=== PATIENT | male | born 1955 | race African-American/Black ===

== ENCOUNTER 2021-08-16 09:36 | Inpatient (IN) | payer OTHER ==
[~2021-08-16] VITALS: Ht 175.3 cm; Wt 86.2 kg
[2021-08-16] VITALS (12 sets, daily range): BP systolic 165–195; BP diastolic 69–125
[2021-08-16 10:57] LABS: BASOPHILS % 1.2 % (0.0-2.0); EOSINOPHILS % 0.9 % (0.0-5.0); HEMATOCRIT. 42.9 % (42.0-52.0); HEMOGLOBIN. 14.6 g/dL (14.0-18.0); LYMPHOCYTES % 35.1 % (20.0-50.0); MEAN CORPUSCULAR HEMOGLOBIN 29.3 pg (28.0-32.0); MEAN CORPUSCULAR VOLUME 85.7 fL (80.0-94.0); MEAN PLATELET VOLUME 9.2 fl (7.4-10.4); MONOCYTES % 6.6 % (2.0-8.0); NEUTROPHILS % 56.2 % (40.0-76.0); PLATELET 232 x1000/uL (130-400); RED CELL DISTRIBUTION WIDTH 14.2 % (11.6-14.6)
[2021-08-16 11:02] LABS: CHLORIDE 108 mEq/L (98-107)
[2021-08-16] MEDS ORDERED: FUROSEMIDE 40MG/4ML VIAL IVP SCH (12:45)
[2021-08-16] MEDS ORDERED: DOPAMINE 400MG/250ML PREMIX 250 ML IV PRN (13:00)
[2021-08-16] MEDS: ASPIRIN 81MG TABLET PO SCH (13:09)
[2021-08-16] MEDS: FUROSEMIDE 40MG/4ML VIAL IVP SCH (13:12)
[2021-08-16] MEDS ORDERED: DOPAMINE HCL 400 MG in DEXT 5% WATER 250 ML IV PRN (13:15)
[2021-08-16 16:17] LABS: *AMPHETAMINES SCREEN URINE NEGATIVE (NEGATIVE); *BENZODIAZEPINES SCREEN URINE NEGATIVE (NEGATIVE); CANNABINOID URINE SCREEN PRESUMTIVE POSITIVE (NEGATIVE); OPIATES URINE SCREEN NEGATIVE (NEGATIVE); PHENCYCLIDINE URINE SCREEN NEGATIVE (NEGATIVE)
[2021-08-16 16:18] LABS: *COCAINE SCREEN URINE NEGATIVE (NEGATIVE); METHADONE URINE SCREEN NEGATIVE (NEGATIVE)
[2021-08-16] MEDS ORDERED: IPRATROPIUM/ALBUTEROL 0.5-3(2.5)MG/3ML NEB HHN PRN (16:30)
[2021-08-16] MEDS ORDERED: ACETAMINOPHEN 325MG TABLET PO PRN (16:30)
[2021-08-16] MEDS ORDERED: DOCUSATE SODIUM 100MG CAPSULE PO PRN (16:30)
[2021-08-16] MEDS ORDERED: LORAZEPAM 0.5MG TABLET PO PRN (16:30)
[2021-08-16] MEDS ORDERED: ONDANSETRON HCL 4MG/2ML INJ IV PRN (16:30)
[2021-08-16] MEDS ORDERED: NALOXONE HCL 0.4MG/ML VIAL IV PRN (16:45)
[2021-08-16] MEDS ORDERED: CALC215T4 PO (21:23)
[2021-08-16] MEDS ORDERED: FISH1CAP34 MT (21:31)
[2021-08-16] MEDS ORDERED: GLIP10TA10 PO (21:31)
[2021-08-16] MEDS ORDERED: PRAS10TA9 PO (21:31)
[2021-08-16] MEDS ORDERED: CALC-26 PO (21:31)
[2021-08-16] MEDS ORDERED: METF-414 PO (21:31)
[2021-08-16] MEDS ORDERED: ALBU4TAB6 PO (21:31)
[2021-08-16] MEDS ORDERED: ASPI-1406 PO (21:31)
[2021-08-16] MEDS ORDERED: ATOR40TA70 MT (21:31)
[2021-08-16] MEDS ORDERED: FERR325T30 PO (21:31)
[2021-08-16] MEDS ORDERED: MULT-13 MT (21:31)
[2021-08-16] MEDS ORDERED: LISI-186 MT (21:31)
[2021-08-16] MEDS ORDERED: FLUT16SP15 BOTHNSTRLS (21:34)
[2021-08-16] MEDS ORDERED: ALBU90AE INH (21:34)
[2021-08-16] MEDS ORDERED: *PATIENT'S OWN MEDICATION STORAGE XX SCH (23:15)
[2021-08-17] VITALS (72 sets, daily range): BP systolic 92–222; BP diastolic 48–144
[2021-08-17 05:55] LABS: BASOPHILS % 1.4 % (0.0-2.0); EOSINOPHILS % 1.2 % (0.0-5.0); HEMATOCRIT. 43.2 % (42.0-52.0); HEMOGLOBIN. 14.4 g/dL (14.0-18.0); LYMPHOCYTES % 27.3 % (20.0-50.0); MEAN CORPUSCULAR HEMOGLOBIN 28.4 pg (28.0-32.0); MEAN CORPUSCULAR VOLUME 84.8 fL (80.0-94.0); MEAN PLATELET VOLUME 9.2 fl (7.4-10.4); MONOCYTES % 9.2 % (2.0-8.0); NEUTROPHILS % 60.9 % (40.0-76.0); PLATELET 251 x1000/uL (130-400); RED BLOOD CELL COUNT 5.09 mill/uL (4.7-6.1)
[2021-08-17 06:55] LABS: CHLORIDE 108 mEq/L (98-107)
[2021-08-17] MEDS ORDERED: NICARDIPINE 100MCG/ML 10ML VIAL (CATH LAB) IV ONE ×2 (07:44)
[2021-08-17] MEDS ORDERED: HEPARIN SODIUM 1,000 UNIT/1ML VIAL IV ONE (07:44)
[2021-08-17] MEDS: FUROSEMIDE 40MG/4ML VIAL IVP SCH (08:56)
[2021-08-17] MEDS: ASPIRIN 81MG TABLET PO SCH (09:00)
[2021-08-17] MEDS ORDERED: DEXTROSE 50% WATER 50ML SYRINGE IV PRN (09:45)
[2021-08-17] MEDS: BLOOD SUGAR DIAGNOSTIC STRIP TEST SCH ×3 (13:06→21:00)
[2021-08-17] MEDS: INSULIN LISPRO 100 UNITS/ML SUBCUT SCH ×3 (13:06→21:00)
[2021-08-17] MEDS ORDERED: LIDOCAINE HCL 1% 30ML VIAL (10MG/ML) ONE (13:28)
[2021-08-17] MEDS ORDERED: IODIXANOL 320MG/ML 100 ML BOTTLE IV ONE ×2 (13:28→14:53)
[2021-08-17] MEDS ORDERED: ASPIRIN/SOD BICARB/CITRIC ACID 324MG TAB EFF ONE (13:28)
[2021-08-17] MEDS ORDERED: MIDAZOLAM HCL 2 MG/2 ML VIAL ONE (13:32)
[2021-08-17] MEDS ORDERED: FENTANYL CITRATE/PF 50MCG/ML 2ML VIAL ONE (13:33)
[2021-08-17] MEDS ORDERED: HYDRALAZINE 20MG/ML VIAL ONE ×2 (13:45→15:41)
[2021-08-17] MEDS ORDERED: NITROGLYCERIN 0.4MG TABLET SL SL ONE (13:46)
[2021-08-17] MEDS ORDERED: IOHEXOL-300 100 ML BOTTLE ONE (14:25)
[2021-08-17] MEDS ORDERED: CLOPIDOGREL 75MG TABLET ONE (14:26)
[2021-08-17] MEDS ORDERED: SODIUM CHLORIDE 0.45% 1,000 ML IV ONE (15:30)
[2021-08-17] MEDS ORDERED: ACETAMINOPHEN 325MG TABLET PO PRN (15:30)
[2021-08-17] MEDS ORDERED: CEFAZOLIN 1000MG PREMIX 100 ML IV ONE (15:30)
[2021-08-17] MEDS ORDERED: ATROPINE SULFATE 1MG/10ML SYR IV PRN (15:30)
[2021-08-17] MEDS ORDERED: NICARDIPINE 40 MG/200 ML PREMIX 200 ML IV PRN (15:45)
[2021-08-17] MEDS ORDERED: SODIUM CHLORIDE 0.45% 500 ML IV ONE (15:45)
[2021-08-17] MEDS ORDERED: CLOPIDOGREL 75MG TABLET PO NR (15:45)
[2021-08-17] MEDS ORDERED: NICARDIPINE 40MG/200ML PREMIX 200 ML IV PRN (16:00)
[2021-08-17] MEDS: LOSARTAN POTASSIUM 25 MG TABLET PO SCH ×2 (16:52→21:49)
[2021-08-17] MEDS: NITROGLYCERIN OINT 1GM/INCH UDPKT TD SCH ×2 (17:38→23:32)
[2021-08-17] MEDS ORDERED: NICARDIPINE 50 MG in SODIUM CHLORIDE 0.9% 250 ML IV PRN (20:00)
[2021-08-17] MEDS: ATORVASTATIN CALCIUM 40MG TABLET PO SCH (21:49)
[2021-08-17] MEDS: HYDROCODONE/ACETAMINOPHEN 5/325MG TABLET PO PRN (21:50)
[2021-08-17 22:37] LABS: *BARBITURATES SCREEN URINE NEGATIVE (NEGATIVE)
[2021-08-18] VITALS (88 sets, daily range): BP systolic 138–202; BP diastolic 56–171
[2021-08-18] MEDS: LOSARTAN POTASSIUM 25 MG TABLET PO SCH ×3 (06:43→22:00)
[2021-08-18] MEDS: NITROGLYCERIN OINT 1GM/INCH UDPKT TD SCH ×3 (06:43→17:46)
[2021-08-18 07:01] LABS: BASOPHILS % 0.8 % (0.0-2.0); EOSINOPHILS % 0.7 % (0.0-5.0); HEMATOCRIT. 42.8 % (42.0-52.0); HEMOGLOBIN. 14.5 g/dL (14.0-18.0); LYMPHOCYTES % 14.6 % (20.0-50.0); MEAN CORPUSCULAR HEMOGLOBIN 28.3 pg (28.0-32.0); MEAN CORPUSCULAR VOLUME 83.6 fL (80.0-94.0); MONOCYTES % 9.4 % (2.0-8.0); NEUTROPHILS % 74.5 % (40.0-76.0); PLATELET 227 x1000/uL (130-400); RED BLOOD CELL COUNT 5.12 mill/uL (4.7-6.1); RED CELL DISTRIBUTION WIDTH 14.1 % (11.6-14.6)
[2021-08-18 07:33] LABS: CHLORIDE 107 mEq/L (98-107)
[2021-08-18] MEDS ORDERED: POTASSIUM CHLORIDE INJ 40 MEQ in DEXT 5% WATER 250 ML IV ONE (08:15)
[2021-08-18] MEDS: INSULIN LISPRO 100 UNITS/ML SUBCUT SCH ×4 (08:20→21:00)
[2021-08-18] MEDS: MORPHINE SULFATE 2 MG/ML CPJ (NOT FOR IM USE) IV PRN (08:31)
[2021-08-18] MEDS: BLOOD SUGAR DIAGNOSTIC STRIP TEST SCH ×4 (08:31→21:00)
[2021-08-18] MEDS ORDERED: ENOXAPARIN 60MG/0.6ML SYR SUBCUT NR (09:30)
[2021-08-18] MEDS ORDERED: POTASSIUM CHLORIDE 20MEQ TABLET SR PO NR (09:30)
[2021-08-18] MEDS: ASPIRIN 81MG TABLET PO SCH (09:52)
[2021-08-18] MEDS: AMLODIPINE 2.5MG TABLET PO SCH ×2 (09:53→21:00)
[2021-08-18] MEDS: FUROSEMIDE 40MG TABLET PO SCH (09:53)
[2021-08-18] MEDS: CLOPIDOGREL 75MG TABLET PO SCH (09:56)
[2021-08-18] MEDS ORDERED: KCL 20MEQ/100ML PREMIX 100 ML IV SCH (10:00)
[2021-08-18] MEDS: CEFAZOLIN 1000MG PREMIX 50 ML IV SCH (13:10)
[2021-08-18] MEDS: POTASSIUM CHLORIDE 20MEQ TABLET SR PO SCH (17:46)
[2021-08-18] MEDS: ACETAMINOPHEN 325MG TABLET PO PRN (18:12)
[2021-08-18] MEDS: ATORVASTATIN CALCIUM 40MG TABLET PO SCH (21:00)
[2021-08-18] MEDS ORDERED: POTASSIUM CHLORIDE 20MEQ/PACKET PO NR (23:17)
[2021-08-19] VITALS (85 sets, daily range): BP systolic 124–199; BP diastolic 53–118
[2021-08-19] MEDS: MORPHINE SULFATE 2 MG/ML CPJ (NOT FOR IM USE) IV PRN ×2 (00:50→05:25)
[2021-08-19 05:25] LABS: EOSINOPHILS % 2.8 % (0.0-5.0); HEMATOCRIT. 45.7 % (42.0-52.0); HEMOGLOBIN. 15.1 g/dL (14.0-18.0); LYMPHOCYTES % 14.6 % (20.0-50.0); MEAN CORPUSCULAR VOLUME 84.7 fL (80.0-94.0); MEAN PLATELET VOLUME 8.6 fl (7.4-10.4); NEUTROPHILS % 75.6 % (40.0-76.0); PLATELET 208 x1000/uL (130-400)
[2021-08-19] MEDS: NITROGLYCERIN OINT 1GM/INCH UDPKT TD SCH ×5 (05:37→23:07)
[2021-08-19 06:08] LABS: CHLORIDE 107 mEq/L (98-107)
[2021-08-19] MEDS: BLOOD SUGAR DIAGNOSTIC STRIP TEST SCH ×4 (07:44→20:24)
[2021-08-19] MEDS: INSULIN LISPRO 100 UNITS/ML SUBCUT SCH ×4 (07:44→20:36)
[2021-08-19] MEDS: CLOPIDOGREL 75MG TABLET PO SCH (11:47)
[2021-08-19] MEDS: ASPIRIN 81MG TABLET PO SCH (11:47)
[2021-08-19] MEDS: FUROSEMIDE 40MG TABLET PO SCH (11:47)
[2021-08-19] MEDS: POTASSIUM CHLORIDE 20MEQ TABLET SR PO SCH ×2 (11:48→17:40)
[2021-08-19] MEDS: ACETAMINOPHEN 325MG TABLET PO PRN (11:48)
[2021-08-19] MEDS: AMLODIPINE 2.5MG TABLET PO SCH ×2 (11:48→20:37)
[2021-08-19] MEDS: CEFAZOLIN 1000MG PREMIX 50 ML IV SCH ×2 (11:49)
[2021-08-19] MEDS: LOSARTAN POTASSIUM 25 MG TABLET PO SCH ×2 (14:28→22:05)
[2021-08-19 15:03] LABS: HEPATITIS B SURFACE ANTIGEN NEGATIVE
[2021-08-19] MEDS: ATORVASTATIN CALCIUM 40MG TABLET PO SCH (20:34)
[2021-08-19] MEDS: CLONIDINE 0.1MG TABLET PO PRN (23:01)
[2021-08-19] MEDS: HYDRALAZINE 20MG/ML VIAL IV PRN (23:02)
[2021-08-20] VITALS (80 sets, daily range): BP systolic 69–186; BP diastolic 57–134
[2021-08-20] MEDS: CEFAZOLIN 1000MG PREMIX 50 ML IV SCH ×3 (00:13→23:59)
[2021-08-20 05:56] LABS: CHLORIDE 106 mEq/L (98-107)
[2021-08-20 06:07] LABS: BASOPHILS % 0.9 % (0.0-2.0); EOSINOPHILS % 2.8 % (0.0-5.0); HEMATOCRIT. 45.4 % (42.0-52.0); HEMOGLOBIN. 15.3 g/dL (14.0-18.0); LYMPHOCYTES % 16.3 % (20.0-50.0); MEAN CORPUSCULAR HEMOGLOBIN 28.6 pg (28.0-32.0); MEAN CORPUSCULAR VOLUME 84.9 fL (80.0-94.0); MEAN PLATELET VOLUME 8.6 fl (7.4-10.4); MONOCYTES % 6.3 % (2.0-8.0); NEUTROPHILS % 73.7 % (40.0-76.0); PLATELET 218 x1000/uL (130-400); RED BLOOD CELL COUNT 5.35 mill/uL (4.7-6.1); RED CELL DISTRIBUTION WIDTH 14.5 % (11.6-14.6)
[2021-08-20] MEDS: LOSARTAN POTASSIUM 25 MG TABLET PO SCH (06:07)
[2021-08-20] MEDS: NITROGLYCERIN OINT 1GM/INCH UDPKT TD SCH ×4 (06:08→23:59)
[2021-08-20 06:14] LABS: PARTIAL THROMBOPLASTIN TIME 27.6 sec (23.4-31.0); PROTHROMBIN TIME 10.9 sec (9.6-11.0)
[2021-08-20] MEDS: BLOOD SUGAR DIAGNOSTIC STRIP TEST SCH ×4 (07:02→21:23)
[2021-08-20] MEDS: INSULIN LISPRO 100 UNITS/ML SUBCUT SCH ×4 (07:03→21:11)
[2021-08-20] MEDS: ASPIRIN 81MG TABLET PO SCH (09:01)
[2021-08-20] MEDS: CLOPIDOGREL 75MG TABLET PO SCH (09:01)
[2021-08-20] MEDS: HYDRALAZINE 20MG/ML VIAL IV PRN (09:02)
[2021-08-20] MEDS: POTASSIUM CHLORIDE 20MEQ TABLET SR PO SCH (09:11)
[2021-08-20] MEDS: FUROSEMIDE 40MG TABLET PO SCH (09:11)
[2021-08-20] MEDS: AMLODIPINE 2.5MG TABLET PO SCH (09:11)
[2021-08-20] MEDS ORDERED: SPIRONOLACTONE 25MG TABLET PO SCH (11:00)
[2021-08-20] MEDS ORDERED: ENOXAPARIN 60MG/0.6ML SYR SUBCUT NR (12:00)
[2021-08-20] MEDS ORDERED: IPRATROPIUM/ALBUTEROL 0.5-3(2.5)MG/3ML NEB HHN PRN (12:30)
[2021-08-20] MEDS: LOSARTAN POTASSIUM 50 MG TABLET PO SCH (18:18)
[2021-08-20] MEDS: ATORVASTATIN CALCIUM 40MG TABLET PO SCH (21:22)
[2021-08-20] MEDS: AMLODIPINE 5MG TABLET PO SCH (21:23)
[2021-08-21] VITALS (52 sets, daily range): BP systolic 110–177; BP diastolic 49–123
[2021-08-21] MEDS: MORPHINE SULFATE 2 MG/ML CPJ (NOT FOR IM USE) IV PRN ×3 (00:01→12:53)
[2021-08-21] MEDS: HYDRALAZINE 20MG/ML VIAL IV PRN ×2 (00:54→02:17)
[2021-08-21 05:54] LABS: EOSINOPHILS % 3.8 % (0.0-5.0); HEMATOCRIT. 47.3 % (42.0-52.0); HEMOGLOBIN. 15.8 g/dL (14.0-18.0); LYMPHOCYTES % 22.1 % (20.0-50.0); MEAN CORPUSCULAR HEMOGLOBIN 28.2 pg (28.0-32.0); MEAN CORPUSCULAR VOLUME 84.5 fL (80.0-94.0); MEAN PLATELET VOLUME 8.8 fl (7.4-10.4); MONOCYTES % 9.4 % (2.0-8.0); NEUTROPHILS % 63.7 % (40.0-76.0); PLATELET 214 x1000/uL (130-400); RED CELL DISTRIBUTION WIDTH 14.2 % (11.6-14.6)
[2021-08-21 06:00] LABS: CHLORIDE 106 mEq/L (98-107)
[2021-08-21] MEDS: NITROGLYCERIN OINT 1GM/INCH UDPKT TD SCH ×5 (06:00→18:30)
[2021-08-21] MEDS ORDERED: LIDOCAINE HCL 1% 30ML VIAL (10MG/ML) ONE (06:11)
[2021-08-21] MEDS ORDERED: GENTAMICIN/NS IRRIGATION 500 ML IR ONE (06:11)
[2021-08-21] MEDS ORDERED: GENTAMICIN SULF 40MG/ML 2ML VIAL ONE (06:11)
[2021-08-21] MEDS ORDERED: IODIXANOL 320MG/ML 100 ML BOTTLE IV ONE (06:13)
[2021-08-21] MEDS: INSULIN LISPRO 100 UNITS/ML SUBCUT SCH ×4 (06:33→22:11)
[2021-08-21] MEDS: BLOOD SUGAR DIAGNOSTIC STRIP TEST SCH ×4 (06:33→21:00)
[2021-08-21] MEDS ORDERED: PROPOFOL 10MG/ML 100ML 100 ML IV ONE (07:19)
[2021-08-21] MEDS ORDERED: MIDAZOLAM HCL 2 MG/2 ML VIAL ONE (07:20)
[2021-08-21] MEDS ORDERED: FENTANYL CITRATE/PF 50MCG/ML 2ML VIAL ONE (09:22)
[2021-08-21] MEDS: ATORVASTATIN CALCIUM 40MG TABLET PO SCH (11:10)
[2021-08-21] MEDS: ASPIRIN 81MG TABLET PO SCH (11:17)
[2021-08-21] MEDS: POTASSIUM CHLORIDE 10MEQ TABLET SR PO SCH (11:18)
[2021-08-21] MEDS: LOSARTAN POTASSIUM 50 MG TABLET PO SCH ×3 (11:18→18:30)
[2021-08-21] MEDS: HYDROCODONE/ACETAMINOPHEN 5/325MG TABLET PO PRN ×2 (11:18→21:35)
[2021-08-21] MEDS: AMLODIPINE 5MG TABLET PO SCH ×2 (11:19→21:35)
[2021-08-21] MEDS: CLOPIDOGREL 75MG TABLET PO SCH (11:20)
[2021-08-21] MEDS: FUROSEMIDE 40MG TABLET PO SCH (11:20)
[2021-08-21] MEDS: SPIRONOLACTONE 50MG TABLET PO SCH (11:21)
[2021-08-21] MEDS: CEFAZOLIN 1000MG PREMIX 50 ML IV SCH (12:52)
[2021-08-21] MEDS ORDERED: PHENOL/SODIUM PHENOLATE 1.4% SRPAY 177ML MM PRN (13:00)
[2021-08-21] MEDS: CLONIDINE 0.1MG TABLET PO PRN (13:36)
[2021-08-21] MEDS: POLYVINYL ALCOHOL OPHTH DROPS 15ML LEFTEYE PRN ×2 (13:37→17:58)
[2021-08-22] VITALS (47 sets, daily range): BP systolic 116–172; BP diastolic 49–98
[2021-08-22] MEDS: NITROGLYCERIN OINT 1GM/INCH UDPKT TD SCH ×4 (00:12→17:10)
[2021-08-22] MEDS: CEFAZOLIN 1000MG PREMIX 50 ML IV SCH ×3 (00:12→23:26)
[2021-08-22] MEDS: HYDROCODONE/ACETAMINOPHEN 5/325MG TABLET PO PRN ×3 (05:30→17:10)
[2021-08-22 06:45] LABS: BASOPHILS % 0.7 % (0.0-2.0); EOSINOPHILS % 3.1 % (0.0-5.0); HEMATOCRIT. 43.7 % (42.0-52.0); HEMOGLOBIN. 14.4 g/dL (14.0-18.0); MEAN CORPUSCULAR HEMOGLOBIN 28.1 pg (28.0-32.0); MEAN CORPUSCULAR VOLUME 85.5 fL (80.0-94.0); MEAN PLATELET VOLUME 8.3 fl (7.4-10.4); MONOCYTES % 9.7 % (2.0-8.0); NEUTROPHILS % 70.5 % (40.0-76.0); PLATELET 181 x1000/uL (130-400); RED BLOOD CELL COUNT 5.11 mill/uL (4.7-6.1); RED CELL DISTRIBUTION WIDTH 14.1 % (11.6-14.6)
[2021-08-22 07:01] LABS: CHLORIDE 103 mEq/L (98-107)
[2021-08-22] MEDS: BLOOD SUGAR DIAGNOSTIC STRIP TEST SCH ×4 (07:50→21:37)
[2021-08-22] MEDS: INSULIN LISPRO 100 UNITS/ML SUBCUT SCH ×4 (08:20→21:40)
[2021-08-22] MEDS: LOSARTAN POTASSIUM 50 MG TABLET PO SCH ×2 (10:05→17:10)
[2021-08-22] MEDS: ASPIRIN 81MG TABLET PO SCH (10:05)
[2021-08-22] MEDS: SPIRONOLACTONE 50MG TABLET PO SCH (10:05)
[2021-08-22] MEDS: FUROSEMIDE 40MG TABLET PO SCH (10:05)
[2021-08-22] MEDS: AMLODIPINE 5MG TABLET PO SCH ×2 (10:05→21:31)
[2021-08-22] MEDS: CLOPIDOGREL 75MG TABLET PO SCH (10:05)
[2021-08-22] MEDS: POTASSIUM CHLORIDE 10MEQ TABLET SR PO SCH (10:06)
[2021-08-22] MEDS: ATORVASTATIN CALCIUM 40MG TABLET PO SCH (21:30)
[2021-08-22] MEDS: HYDRALAZINE 20MG/ML VIAL IV PRN (23:26)
[2021-08-23] VITALS (27 sets, daily range): BP systolic 106–175; BP diastolic 40–103
[2021-08-23] MEDS: HYDROCODONE/ACETAMINOPHEN 5/325MG TABLET PO PRN (00:58)
[2021-08-23] MEDS: NITROGLYCERIN OINT 1GM/INCH UDPKT TD SCH ×3 (06:38→17:35)
[2021-08-23] MEDS: HYDRALAZINE 20MG/ML VIAL IV PRN (06:45)
[2021-08-23] MEDS: INSULIN LISPRO 100 UNITS/ML SUBCUT SCH ×3 (06:58→21:00)
[2021-08-23] MEDS: BLOOD SUGAR DIAGNOSTIC STRIP TEST SCH ×3 (07:50→21:00)
[2021-08-23 09:48] LABS: BASOPHILS % 0.8 % (0.0-2.0); EOSINOPHILS % 2.6 % (0.0-5.0); HEMATOCRIT. 43.9 % (42.0-52.0); HEMOGLOBIN. 14.5 g/dL (14.0-18.0); MEAN CORPUSCULAR HEMOGLOBIN 28.1 pg (28.0-32.0); MEAN CORPUSCULAR VOLUME 84.8 fL (80.0-94.0); MEAN PLATELET VOLUME 8.4 fl (7.4-10.4); MONOCYTES % 8.4 % (2.0-8.0); NEUTROPHILS % 71.2 % (40.0-76.0); PLATELET 203 x1000/uL (130-400); RED BLOOD CELL COUNT 5.17 mill/uL (4.7-6.1); RED CELL DISTRIBUTION WIDTH 14.4 % (11.6-14.6)
[2021-08-23] MEDS: LOSARTAN POTASSIUM 50 MG TABLET PO SCH ×2 (10:18→17:34)
[2021-08-23] MEDS: SPIRONOLACTONE 50MG TABLET PO SCH (10:18)
[2021-08-23] MEDS: POTASSIUM CHLORIDE 10MEQ TABLET SR PO SCH (10:18)
[2021-08-23] MEDS: CLOPIDOGREL 75MG TABLET PO SCH (10:18)
[2021-08-23] MEDS: ASPIRIN 81MG TABLET PO SCH (10:18)
[2021-08-23] MEDS: FUROSEMIDE 40MG TABLET PO SCH (10:18)
[2021-08-23] MEDS: AMLODIPINE 5MG TABLET PO SCH ×2 (10:19→21:19)
[2021-08-23 11:10] LABS: CHLORIDE 105 mEq/L (98-107)
[2021-08-23] MEDS: CEFAZOLIN 1000MG PREMIX 50 ML IV SCH (14:38)
[2021-08-23] MEDS: ATORVASTATIN CALCIUM 40MG TABLET PO SCH (21:19)
[2021-08-24] VITALS (16 sets, daily range): BP systolic 117–163; BP diastolic 57–108
[2021-08-24] MEDS: HYDROCODONE/ACETAMINOPHEN 5/325MG TABLET PO PRN (02:20)
[2021-08-24] MEDS: NITROGLYCERIN OINT 1GM/INCH UDPKT TD SCH ×4 (06:05→12:40)
[2021-08-24 06:37] LABS: BASOPHILS % 1.3 % (0.0-2.0); EOSINOPHILS % 3.6 % (0.0-5.0); HEMATOCRIT. 42.8 % (42.0-52.0); HEMOGLOBIN. 14.6 g/dL (14.0-18.0); LYMPHOCYTES % 29.1 % (20.0-50.0); MEAN CORPUSCULAR HEMOGLOBIN 28.5 pg (28.0-32.0); MEAN CORPUSCULAR VOLUME 83.5 fL (80.0-94.0); MEAN PLATELET VOLUME 8.2 fl (7.4-10.4); MONOCYTES % 10.1 % (2.0-8.0); NEUTROPHILS % 55.9 % (40.0-76.0); PLATELET 197 x1000/uL (130-400); RED BLOOD CELL COUNT 5.13 mill/uL (4.7-6.1); RED CELL DISTRIBUTION WIDTH 13.9 % (11.6-14.6)
[2021-08-24 06:42] LABS: CHLORIDE 104 mEq/L (98-107)
[2021-08-24] MEDS: BLOOD SUGAR DIAGNOSTIC STRIP TEST SCH ×3 (06:50→11:50)
[2021-08-24] MEDS: FUROSEMIDE 40MG TABLET PO SCH (09:26)
[2021-08-24] MEDS: POTASSIUM CHLORIDE 10MEQ TABLET SR PO SCH (09:26)
[2021-08-24] MEDS: ASPIRIN 81MG TABLET PO SCH (09:26)
[2021-08-24] MEDS: AMLODIPINE 5MG TABLET PO SCH (09:26)
[2021-08-24] MEDS: LOSARTAN POTASSIUM 50 MG TABLET PO SCH (09:26)
[2021-08-24] MEDS: CLOPIDOGREL 75MG TABLET PO SCH (09:27)
[2021-08-24] MEDS: SPIRONOLACTONE 50MG TABLET PO SCH (09:27)
[2021-08-24] MEDS: INSULIN LISPRO 100 UNITS/ML SUBCUT SCH ×3 (09:28→12:38)
[2021-08-24] MEDS ORDERED: AMLO5TAB88 PO (11:58)
[2021-08-24] MEDS ORDERED: ALD50 PO (11:58)
[2021-08-24] MEDS ORDERED: CEPH250C2 MT (11:58)
[2021-08-24] MEDS ORDERED: POTA-189 PO (11:58)
[2021-08-24] MEDS ORDERED: TRAM50TA3 MT (11:58)
[2021-08-24] MEDS ORDERED: FURO40TA5 PO (11:58)
[2021-08-24] MEDS ORDERED: CLOP75TA15 PO (11:58)
== END 2021-08-24 14:00 | disposition home health service (06) | DRG 179 ==
LOC: ER 09:36 → CVICU 12:57 → EDBEDREQ 13:00 → ENRESERV 19:27 → 3WST 08-23 13:45
PROVIDERS: ADMIT Internal Medicine; ATTEND Internal Medicine
PROC: 027035Z Dilation of Coronary Artery, One Artery with Two Drug-eluting Intraluminal Devices, Percutaneous Approach (ICD-10-PCS; principal; 2021-08-17)
PROC: 4A023N7 Measurement of Cardiac Sampling and Pressure, Left Heart, Percutaneous Approach (ICD-10-PCS; 2021-08-17)
PROC: B2111ZZ Fluoroscopy of Multiple Coronary Arteries using Low Osmolar Contrast (ICD-10-PCS; 2021-08-17)
PROC: B2151ZZ Fluoroscopy of Left Heart using Low Osmolar Contrast (ICD-10-PCS; 2021-08-17)
PROC: 5A1223Z Performance of Cardiac Pacing, Continuous (ICD-10-PCS; 2021-08-17)
PROC: 0JH609Z Insertion of Cardiac Resynchronization Defibrillator Pulse Generator into Chest Subcutaneous Tissue and Fascia, Open Approach (ICD-10-PCS; 2021-08-21)
PROC: 02H43KZ Insertion of Defibrillator Lead into Coronary Vein, Percutaneous Approach (ICD-10-PCS; 2021-08-21)
PROC: 02H63KZ Insertion of Defibrillator Lead into Right Atrium, Percutaneous Approach (ICD-10-PCS; 2021-08-21)
PROC: 02HK3KZ Insertion of Defibrillator Lead into Right Ventricle, Percutaneous Approach (ICD-10-PCS; 2021-08-21)
PROC: B517YZA Fluoroscopy of Left Subclavian Vein using Other Contrast, Guidance (ICD-10-PCS; 2021-08-21)
PROC: 4A023FZ Measurement of Cardiac Rhythm, Percutaneous Approach (ICD-10-PCS; 2021-08-21)
PROC: 4A0234Z Measurement of Cardiac Electrical Activity, Percutaneous Approach (ICD-10-PCS; 2021-08-21)
DX: I44.2 Atrioventricular block, complete (principal); J96.01 Acute respiratory failure with hypoxia; I50.23 Acute on chronic systolic (congestive) heart failure; I47.2 Ventricular tachycardia; I11.0 Hypertensive heart disease with heart failure; I27.81 Cor pulmonale (chronic); E11.9 Type 2 diabetes mellitus without complications; I16.1 Hypertensive emergency; E78.5 Hyperlipidemia, unspecified; I25.5 Ischemic cardiomyopathy; I27.20 Pulmonary hypertension, unspecified; J44.9 Chronic obstructive pulmonary disease, unspecified; Z20.822 Contact with and (suspected) exposure to COVID-19; M19.90 Unspecified osteoarthritis, unspecified site; R74.01 Elevation of levels of liver transaminase levels; I35.8 Other nonrheumatic aortic valve disorders; I25.10 Atherosclerotic heart disease of native coronary artery without angina pectoris; Z95.5 Presence of coronary angioplasty implant and graft; I25.2 Old myocardial infarction; Z87.891 Personal history of nicotine dependence
CPT/HCPCS: 33210; 33225; 33249; 36415; 71045; 75820; 80048; 80053; 80061; 80305; 82962; 83036; 83735; 83880; 84443; 84484; 85025; 86703; 86705; 86709; 86803; 86850; 86900; 87340; 87426; 92928; 93005; 93306; 93458; 93641; 99291; A4565; C1731; C1758; C1769; C1874; C1882; C1887; C1892; C1893; C1898; C1899; C1900; J0360; J0690; J1580; J1644; J1650; J1815; J1940; J2250; J2270; J2704; J3010; J3480; J3490; J7040; J7050; Q9967; C1725

== ENCOUNTER 2024-06-17 06:01 | Inpatient (IN) | payer MEDICAID ==
[~2024-06-17] VITALS: Ht 177.8 cm; Wt 67.7 kg
[2024-06-17] VITALS (8 sets, daily range): BP systolic 135–158; BP diastolic 70–99; PULSE 70–93; RESP 18–24; TEMP 36.6696–36.9184; O2SAT 94–99
[~2024-06-17 06:01] MED LIST: ALBU18HF2 IH; ALBU90AE INH; ASPI-1406 PO; ATOR40TA70 MT; CALC-26 PO; CARV6.2548 MT; CLOP75TA15 PO; FERR325T30 PO; FISH1CAP34 MT; FLUT16SP15 BOTHNSTRLS; FLUT1DIS3 INH; GLIP10TA17 PO; LOSA25TA26 MT; MULT-13 MT; POTA-189 PO; TRAM50TA3 MT
[2024-06-17] MEDS: MAGNESIUM 2 G PREMIX 50 ML IV ONE (06:15)
[2024-06-17] MEDS: METHYLPREDNISOLONE SOD SUCC 125MG/2ML (ACT-O-VIAL) IV STA (06:15)
[2024-06-17] MEDS ORDERED: ALBUTEROL (0.083%) 2.5MG/3ML NEB HHN SCH (06:30)
[2024-06-17 06:33] LABS: BASOPHILS % 1.2 % (0.0-2.0); HEMATOCRIT. 33.2 % (42.0-52.0); HEMOGLOBIN. 10.5 g/dL (14.0-18.0); LYMPHOCYTES % 36.9 % (20.0-50.0); MEAN CORPUSCULAR HGB CONC 31.5 g/dL (31.0-37.0); MEAN CORPUSCULAR VOLUME 82.6 fL (80.0-94.0); MEAN PLATELET VOLUME 8.3 fl (7.4-10.4); NEUTROPHILS % 53.9 % (40.0-76.0); PLATELET 304 x1000/uL (130-400); RED BLOOD CELL COUNT 4.02 mill/uL (4.7-6.1); RED CELL DISTRIBUTION WIDTH 15.6 % (11.6-14.6); WHITE BLOOD COUNT 8.1 x1000/uL (4.5-11.0)
[2024-06-17 06:34] LABS: CHLORIDE 102 mEq/L (98-107); POTASSIUM 3.7 mEq/L (3.5-5.1); SODIUM 139 mEq/L (136-145)
[2024-06-17 06:35] LABS: CARBON DIOXIDE 29 mEq/L (21-32)
[2024-06-17 06:36] LABS: CALCIUM 9.1 mg/dL (8.7-10.4)
[2024-06-17 06:40] LABS: GLUCOSE 259 mg/dL (70-105); UREA NITROGEN BLOOD 12 mg/dL (9-23)
[2024-06-17 06:47] LABS: CREATININE 1.4 mg/dL (0.6-1.3)
[2024-06-17 06:49] LABS: TROPONIN I HIGH SENSITIVITY 771 ng/L (3.0-53)
[2024-06-17 07:22] LABS: INR 0.9; PARTIAL THROMBOPLASTIN TIME 23.1 sec (23.4-31.0); PROTHROMBIN TIME 10.3 sec (9.6-11.0)
[2024-06-17 09:22] LABS: BG BASE EXCESS 0.9 mmol/L (-2.0-3.0); BG CARBOXYHEMOGLOBIN 0.1 % (0.5-1.5); BG DEOXYHEMOGLOBIN 0.7 % (0.0-5.0); BG FRACTION INSPIRED OXYGEN 40; BG HCO3 ACT 26.1 mmol/L (21.0-28.0); BG METHEMOGLOBIN 0.1 % (0.5-1.5); BG OXYGEN SATURATION 99.3 % (94.0-98.0); BG OXYHEMOGLOBIN 99.1 % (94.0-98.0); BG PCO2 44.9 mmHg (35.0-48.0); BG PH 7.383 (7.350-7.450); BG PO2 167.4 mmHg (83.0-108.0); BG SAMPLE SITE RIGHT RADIAL; BG TOTAL RESPIRATORY RATE 31 b/min; BG VENT MODE MASK - BIPAP
[2024-06-17] MEDS: ASPIRIN 81MG TABLET PO ONE (10:35)
[2024-06-17] MEDS ORDERED: ALBUTEROL 6.7GM HFA INHALER INH PRN (11:00)
[2024-06-17] MEDS ORDERED: ALBUTEROL (0.083%) 2.5MG/3ML NEB HHN PRN (11:30)
[2024-06-17] MEDS ORDERED: BUDESONIDE 0.5MG/2ML NEB HHN SCH (13:30)
[2024-06-17] MEDS ORDERED: NITROGLYCERIN 0.4MG TABLET SL SL PRN (13:30)
[2024-06-17] MEDS ORDERED: AMLO10TA80 PO (13:31)
[2024-06-17] MEDS ORDERED: DEXTROSE 50% WATER 50ML SYRINGE IV PRN (13:45)
[2024-06-17] MEDS: BLOOD SUGAR DIAGNOSTIC STRIP TEST SCH (16:50)
[2024-06-17] MEDS: INSULIN LISPRO 100 UNITS/ML SUBCUT SCH (17:20)
[2024-06-17] MEDS: AMLODIPINE 5MG TABLET PO SCH (18:07)
[2024-06-17 18:08] LABS: TROPONIN I HIGH SENSITIVITY 11 ng/L (3.0-53)
[2024-06-17] MEDS: ACETAMINOPHEN 325MG TABLET PO PRN (18:09)
[2024-06-17] MEDS: ENOXAPARIN 60MG/0.6ML SYR SUBCUT NR (18:09)
[2024-06-17] MEDS ORDERED: FAMOTIDINE 20MG TABLET PO SCH (21:00)
[2024-06-17] MEDS: IPRATROPIUM/ALBUTEROL 0.5-3(2.5)MG/3ML NEB HHN SCH (22:22)
[2024-06-18] VITALS (12 sets, daily range): BP systolic 137–163; BP diastolic 72–94; PULSE 79–115; RESP 18–28; TEMP 36.55848–37.2252; O2SAT 93–99
[2024-06-18] MEDS: PROMETHAZINE/DEXTROMETHORPHAN 6.25-15MG/5ML PO PRN (00:33)
[2024-06-18] MEDS: HYDROCODONE/ACETAMINOPHEN 5/325MG TABLET PO PRN (02:19)
[2024-06-18] MEDS ORDERED: NALOXONE HCL 0.4MG/ML VIAL IV PRN (07:15)
[2024-06-18] MEDS ORDERED: LOSARTAN 25 MG TABLET PO SCH (09:00)
[2024-06-18] MEDS: PANTOPRAZOLE SODIUM 40 MG/VIAL IV SCH (09:31)
[2024-06-18] MEDS: CLOPIDOGREL 75MG TABLET PO SCH (09:32)
[2024-06-18] MEDS: CARVEDILOL 3.125 MG TABLET PO SCH (09:32)
[2024-06-18] MEDS: AMLODIPINE 10MG TABLET PO SCH (09:32)
[2024-06-18] MEDS: ASPIRIN 81MG EC TABLET PO SCH (09:32)
[2024-06-18] MEDS: SODIUM CHLORIDE 0.45% 1,000 ML IV SCH (10:30)
[2024-06-18] MEDS ORDERED: SODIUM CHLORIDE 0.9% 1,000 ML IV SCH (11:00)
[2024-06-18 11:09] LABS: BASOPHILS % 0.6 % (0.0-2.0); EOSINOPHILS % 0.1 % (0.0-5.0); HEMATOCRIT. 32.1 % (42.0-52.0); HEMOGLOBIN. 10.4 g/dL (14.0-18.0); LYMPHOCYTES % 9.6 % (20.0-50.0); MEAN CORPUSCULAR HEMOGLOBIN 25.9 pg (28.0-32.0); MEAN CORPUSCULAR HGB CONC 32.4 g/dL (31.0-37.0); MEAN PLATELET VOLUME 8.2 fl (7.4-10.4); MONOCYTES % 4.7 % (2.0-8.0); PLATELET 254 x1000/uL (130-400); RED BLOOD CELL COUNT 4.01 mill/uL (4.7-6.1); RED CELL DISTRIBUTION WIDTH 15.6 % (11.6-14.6); WHITE BLOOD COUNT 8.8 x1000/uL (4.5-11.0)
[2024-06-18 11:36] LABS: CHLORIDE 106 mEq/L (98-107); POTASSIUM 4.2 mEq/L (3.5-5.1); SODIUM 140 mEq/L (136-145)
[2024-06-18 11:37] LABS: CALCIUM 9.2 mg/dL (8.7-10.4); CARBON DIOXIDE 26 mEq/L (21-32)
[2024-06-18 11:42] LABS: CREATININE 0.9 mg/dL (0.6-1.3); GLUCOSE 145 mg/dL (70-105); UREA NITROGEN BLOOD 14 mg/dL (9-23)
[2024-06-18 11:57] LABS: TROPONIN I HIGH SENSITIVITY 579 ng/L (3.0-53)
[2024-06-18] MEDS ORDERED: HEPARIN 1000 UNITS/ML 10ML ONE (11:58)
[2024-06-18] MEDS ORDERED: IODIXANOL 320MG/ML 100 ML BOTTLE IV ONE (11:58)
[2024-06-18] MEDS ORDERED: LIDOCAINE HCL 1% 20ML VIAL ONE (11:58)
[2024-06-18 12:51] LABS: THYROID STIMULATING HORMONE 1.28 uIU/mL (0.55-4.78)
[2024-06-18 13:23] LABS: BG BASE EXCESS -3.4 mmol/L (-2.0-3.0); BG CARBOXYHEMOGLOBIN 0.7 % (0.5-1.5); BG DEOXYHEMOGLOBIN 42.9 % (0.0-5.0); BG FRACTION INSPIRED OXYGEN 34; BG HCO3 ACT 23.9 mmol/L (21.0-28.0); BG METHEMOGLOBIN 0.3 % (0.5-1.5); BG OXYGEN SATURATION 56.7 % (94.0-98.0); BG OXYHEMOGLOBIN 56.1 % (94.0-98.0); BG PCO2 52.8 mmHg (35.0-48.0); BG PH 7.273 (7.350-7.450); BG PO2 34.1 mmHg (83.0-108.0); BG SAMPLE SITE LEFT RADIAL; BG TOTAL HEMOGLOBIN 11.7 g/dL (13.5-17.5); BG VENT MODE NASAL CANNULA
[2024-06-18 14:39] LABS: BG BASE EXCESS 2.9 mmol/L (-2.0-3.0); BG CARBOXYHEMOGLOBIN 0.5 % (0.5-1.5); BG DEOXYHEMOGLOBIN 5.7 % (0.0-5.0); BG FRACTION INSPIRED OXYGEN 36; BG HCO3 ACT 27.2 mmol/L (21.0-28.0); BG METHEMOGLOBIN 0.3 % (0.5-1.5); BG OXYGEN SATURATION 94.3 % (94.0-98.0); BG OXYHEMOGLOBIN 93.5 % (94.0-98.0); BG PCO2 40.7 mmHg (35.0-48.0); BG PH 7.443 (7.350-7.450); BG PO2 72.5 mmHg (83.0-108.0); BG SAMPLE SITE RIGHT RADIAL; BG TOTAL HEMOGLOBIN 10.6 g/dL (13.5-17.5); BG VENT MODE NASAL CANNULA
[2024-06-18] MEDS: MAGNESIUM 2 G PREMIX 50 ML IV NR (18:15)
[2024-06-18] MEDS ORDERED: ENOXAPARIN 80MG/0.8ML SYR SUBCUT NR (19:00)
[2024-06-18] MEDS: ATORVASTATIN CALCIUM 40MG TABLET PO SCH (21:22)
[2024-06-18] MEDS: FLUTICASONE PROPIONATE 50MCG/SPRAY BOTTLE BOTHNSTRLS SCH (22:27)
[2024-06-18] MEDS: SODIUM CHLORIDE 0.9% FOR INH 3ML VIAL NEB INH SCH (22:28)
[2024-06-19] VITALS (10 sets, daily range): BP systolic 134–156; BP diastolic 65–94; PULSE 60–113; RESP 17–27; TEMP 36.6696–37.2252; O2SAT 94–100
[2024-06-19] MEDS: SODIUM CHLORIDE 0.45% 1,000 ML IV SCH (07:04)
[2024-06-19 10:57] LABS: CHLORIDE 105 mEq/L (98-107); POTASSIUM 4.6 mEq/L (3.5-5.1); SODIUM 139 mEq/L (136-145)
[2024-06-19 10:58] LABS: CARBON DIOXIDE 25 mEq/L (21-32)
[2024-06-19 10:59] LABS: CALCIUM 9.5 mg/dL (8.7-10.4)
[2024-06-19 11:03] LABS: CREATININE 1.2 mg/dL (0.6-1.3); GLUCOSE 167 mg/dL (70-105)
[2024-06-19 11:04] LABS: UREA NITROGEN BLOOD 16 mg/dL (9-23)
[2024-06-19] MEDS ORDERED: IOHEXOL-350 100 ML BOTTLE ONE (11:10)
[2024-06-19 11:14] LABS: TROPONIN I HIGH SENSITIVITY 403 ng/L (3.0-53)
[2024-06-19] MEDS ORDERED: ASPIRIN/SOD BICARB/CITRIC ACID 324MG TAB EFF ONE (13:13)
[2024-06-19] MEDS ORDERED: IODIXANOL 320MG/ML 100 ML BOTTLE IV ONE (13:13)
[2024-06-19] MEDS ORDERED: LIDOCAINE HCL 1% 20ML VIAL ONE (13:13)
[2024-06-19] MEDS: SODIUM CHLORIDE 3% FOR INH 4ML NEB INH SCH (21:20)
[2024-06-20] VITALS (12 sets, daily range): BP systolic 133–145; BP diastolic 60–82; PULSE 60–61; RESP 15–28; TEMP 36.89184–37.05852; O2SAT 89–99
[2024-06-20 00:13] LABS: *AMPHETAMINES SCREEN URINE NEGATIVE (NEGATIVE); *BARBITURATES SCREEN URINE NEGATIVE (NEGATIVE); *BENZODIAZEPINES SCREEN URINE NEGATIVE (NEGATIVE); *COCAINE SCREEN URINE NEGATIVE (NEGATIVE)
[2024-06-20 00:14] LABS: CANNABINOID URINE SCREEN PRESUMPTIVE POSITIVE (NEGATIVE); ECSTASY MDMA SCREEN URINE NEGATIVE (NEGATIVE); METHADONE URINE SCREEN NEGATIVE (NEGATIVE); OPIATES URINE SCREEN PRESUMPTIVE POSITIVE (NEGATIVE); PHENCYCLIDINE URINE SCREEN NEGATIVE (NEGATIVE)
[2024-06-20] MEDS ORDERED: REGADENOSON 0.4 MG/5 ML IV NR (10:30)
[2024-06-20 11:22] LABS: CALCIUM 9.1 mg/dL (8.7-10.4); CARBON DIOXIDE 22 mEq/L (21-32); CHLORIDE 105 mEq/L (98-107); POTASSIUM 3.8 mEq/L (3.5-5.1); SODIUM 139 mEq/L (136-145)
[2024-06-20 11:27] LABS: CREATININE 1.1 mg/dL (0.6-1.3); GLUCOSE 172 mg/dL (70-105); UREA NITROGEN BLOOD 18 mg/dL (9-23)
[2024-06-20 11:29] LABS: ALANINE AMINOTRANSFERASE 178 IU/L (10-49); ALBUMIN 3.8 g/dL (3.2-4.8); ASPARTATE AMINOTRANSFERASE 69 IU/L (<34); BILIRUBIN DIRECT 0.2 mg/dL (<=3.0); BILIRUBIN TOTAL 0.8 mg/dL (0.1-1.0); PHOSPHORUS 2.9 mg/dL (2.5-4.9); PROTEIN TOTAL 6.3 g/dL (6.0-8.3)
[2024-06-20 11:30] LABS: BASOPHILS % 0.8 % (0.0-2.0); DIFFERENTIAL COMMENT 0; EOSINOPHILS % 0.8 % (0.0-5.0); HEMATOCRIT. 32.3 % (42.0-52.0); HEMOGLOBIN. 10.2 g/dL (14.0-18.0); LYMPHOCYTES % 17.8 % (20.0-50.0); MEAN CORPUSCULAR HEMOGLOBIN 25.2 pg (28.0-32.0); MEAN CORPUSCULAR HGB CONC 31.6 g/dL (31.0-37.0); MEAN CORPUSCULAR VOLUME 79.7 fL (80.0-94.0); MEAN PLATELET VOLUME 8.6 fl (7.4-10.4); MONOCYTES % 8.8 % (2.0-8.0); NEUTROPHILS % 71.8 % (40.0-76.0); PLATELET 265 x1000/uL (130-400); RED BLOOD CELL COUNT 4.05 mill/uL (4.7-6.1); RED CELL DISTRIBUTION WIDTH 15.7 % (11.6-14.6); WHITE BLOOD COUNT 6.8 x1000/uL (4.5-11.0)
[2024-06-20] MEDS ORDERED: MAGNESIUM 4 G PREMIX 100 ML IV NR (16:00)
[2024-06-20] MEDS: MAGNESIUM OXIDE 400MG TABLET PO NR (17:30)
[2024-06-20] MEDS: FAMOTIDINE 20MG TABLET PO SCH (20:36)
[2024-06-20] MEDS: IPRATROPIUM BROMIDE (0.02%) 0.5MG/2.5ML NEB HHN STA (21:33)
[2024-06-21] VITALS (9 sets, daily range): BP systolic 125–164; BP diastolic 68–88; PULSE 60–61; RESP 13–21; TEMP 36.6696–36.9474; O2SAT 92–100
[2024-06-21 07:19] LABS: CALCIUM 8.7 mg/dL (8.7-10.4); CARBON DIOXIDE 22 mEq/L (21-32); CHLORIDE 108 mEq/L (98-107); POTASSIUM 3.7 mEq/L (3.5-5.1); SODIUM 141 mEq/L (136-145)
[2024-06-21 07:25] LABS: GLUCOSE 125 mg/dL (70-105); UREA NITROGEN BLOOD 16 mg/dL (9-23)
[2024-06-21 08:21] LABS: BASOPHILS % 1.1 % (0.0-2.0); DIFFERENTIAL COMMENT 0; EOSINOPHILS % 5.8 % (0.0-5.0); HEMATOCRIT. 31.2 % (42.0-52.0); HEMOGLOBIN. 10.1 g/dL (14.0-18.0); LYMPHOCYTES % 24.6 % (20.0-50.0); MEAN CORPUSCULAR HEMOGLOBIN 25.8 pg (28.0-32.0); MEAN CORPUSCULAR HGB CONC 32.3 g/dL (31.0-37.0); MEAN CORPUSCULAR VOLUME 79.8 fL (80.0-94.0); MEAN PLATELET VOLUME 8.3 fl (7.4-10.4); MONOCYTES % 9.4 % (2.0-8.0); NEUTROPHILS % 59.1 % (40.0-76.0); PLATELET 222 x1000/uL (130-400); RED CELL DISTRIBUTION WIDTH 15.3 % (11.6-14.6); WHITE BLOOD COUNT 3.8 x1000/uL (4.5-11.0)
[2024-06-21] MEDS: MAGNESIUM GLUCONATE 500MG TABLET PO NR (14:14)
[2024-06-21] MEDS: MAGNESIUM 2 G PREMIX 50 ML IV SCH (14:16)
[2024-06-22] VITALS (7 sets, daily range): BP systolic 145–171; BP diastolic 64–79; PULSE 60–66; RESP 17–24; TEMP 36.44736–37.00296; O2SAT 95–98
[2024-06-22 12:11] LABS: DIFFERENTIAL COMMENT 0; EOSINOPHILS % 3.7 % (0.0-5.0); HEMATOCRIT. 33.4 % (42.0-52.0); HEMOGLOBIN. 10.8 g/dL (14.0-18.0); LYMPHOCYTES % 18.1 % (20.0-50.0); MEAN CORPUSCULAR HEMOGLOBIN 25.8 pg (28.0-32.0); MEAN CORPUSCULAR HGB CONC 32.3 g/dL (31.0-37.0); MEAN CORPUSCULAR VOLUME 79.9 fL (80.0-94.0); MEAN PLATELET VOLUME 8.2 fl (7.4-10.4); MONOCYTES % 8.6 % (2.0-8.0); NEUTROPHILS % 68.6 % (40.0-76.0); PLATELET 253 x1000/uL (130-400); RED BLOOD CELL COUNT 4.18 mill/uL (4.7-6.1); RED CELL DISTRIBUTION WIDTH 15.4 % (11.6-14.6); WHITE BLOOD COUNT 3.7 x1000/uL (4.5-11.0)
[2024-06-22 12:13] LABS: CHLORIDE 107 mEq/L (98-107); INR 1.1; POTASSIUM 3.8 mEq/L (3.5-5.1); PROTHROMBIN TIME 11.8 sec (9.6-11.0); SODIUM 139 mEq/L (136-145)
[2024-06-22 12:14] LABS: CALCIUM 9.1 mg/dL (8.7-10.4); CARBON DIOXIDE 21 mEq/L (21-32)
[2024-06-22 12:19] LABS: GLUCOSE 105 mg/dL (70-105); UREA NITROGEN BLOOD 11 mg/dL (9-23)
[2024-06-22] MEDS ORDERED: IODIXANOL 320MG/ML 100 ML BOTTLE IV ONE (12:50)
[2024-06-22] MEDS ORDERED: HEPARIN 1000 UNITS/ML 10ML ONE (12:50)
[2024-06-22] MEDS ORDERED: MIDAZOLAM HCL 2 MG/2 ML VIAL ONE (12:50)
[2024-06-22] MEDS ORDERED: LIDOCAINE HCL 1% 20ML VIAL ONE (12:50)
[2024-06-22] MEDS ORDERED: FENTANYL CITRATE/PF 50MCG/ML 2ML VIAL ONE (12:50)
[2024-06-22] MEDS ORDERED: CLOPIDOGREL 75MG TABLET ONE (13:41)
[2024-06-22] MEDS ORDERED: ASPIRIN 325MG TABLET ONE (13:41)
[2024-06-22] MEDS ORDERED: HYDRALAZINE 20MG/ML VIAL ONE (13:46)
[2024-06-22] MEDS ORDERED: ONDANSETRON HCL 4MG/2ML INJ IV PRN (14:00)
[2024-06-22] MEDS ORDERED: ACETAMINOPHEN 325MG TABLET PO PRN (14:00)
[2024-06-22] MEDS ORDERED: ATROPINE SULFATE 1MG/10ML SYR IV PRN (14:00)
[2024-06-23] VITALS: BP 151/70; PULSE 60; RESP 15; TEMP 36.61404; O2SAT 98
[2024-06-23 04:00] VITALS: BP 154/80; PULSE 60; RESP 15; TEMP 36.83628; O2SAT 94
[2024-06-23 08:00] VITALS: BP 144/70; PULSE 60; RESP 16; TEMP 36.83628; O2SAT 98
[2024-06-23] MEDS ORDERED: ASPI-1406 PO (10:10)
[2024-06-23] MEDS ORDERED: COR3 PO (10:10)
[2024-06-23] MEDS ORDERED: CLOP-31 PO (10:10)
[2024-06-23 10:31] VITALS: BP 144/70; PULSE 60; TEMP 98.3; O2SAT 98
== END 2024-06-23 14:53 | disposition home or self-care (01) | DRG 175 ==
LOC: ER 06:11 → 3WST 08:21 → EDBEDREQ 08:27 → EDBEDREQSVC 12:14
PROVIDERS: ADMIT Internal Medicine; ATTEND Internal Medicine
PROC: 5A09357 Assistance with Respiratory Ventilation, Less than 24 Consecutive Hours, Continuous Positive Airway Pressure (ICD-10-PCS; 2024-06-17)
PROC: 027034Z Dilation of Coronary Artery, One Artery with Drug-eluting Intraluminal Device, Percutaneous Approach (ICD-10-PCS; principal; 2024-06-22)
PROC: 4A023N7 Measurement of Cardiac Sampling and Pressure, Left Heart, Percutaneous Approach (ICD-10-PCS; 2024-06-22)
PROC: B211YZZ Fluoroscopy of Multiple Coronary Arteries using Other Contrast (ICD-10-PCS; 2024-06-22)
PROC: B216YZZ Fluoroscopy of Right and Left Heart using Other Contrast (ICD-10-PCS; 2024-06-22)
DX: I11.0 Hypertensive heart disease with heart failure (principal); J96.01 Acute respiratory failure with hypoxia; I21.4 Non-ST elevation (NSTEMI) myocardial infarction; I44.2 Atrioventricular block, complete; I50.23 Acute on chronic systolic (congestive) heart failure; J44.1 Chronic obstructive pulmonary disease with (acute) exacerbation; J96.02 Acute respiratory failure with hypercapnia; I25.10 Atherosclerotic heart disease of native coronary artery without angina pectoris; E11.9 Type 2 diabetes mellitus without complications; E78.5 Hyperlipidemia, unspecified; E83.42 Hypomagnesemia; E78.00 Pure hypercholesterolemia, unspecified; M13.88 Other specified arthritis, other site; F41.9 Anxiety disorder, unspecified; Z95.5 Presence of coronary angioplasty implant and graft; Z95.810 Presence of automatic (implantable) cardiac defibrillator; I25.2 Old myocardial infarction; Z87.891 Personal history of nicotine dependence; Z91.199 Patient's noncompliance with other medical treatment and regimen due to unspecified reason; Z55.6 Problems related to health literacy
CPT/HCPCS: 36415; 36600; 71045; 71275; 78580; 80048; 80076; 80305; 82375; 82805; 82962; 83735; 83880; 84100; 84443; 84484; 85025; 85347; 92928; 93005; 93458; 94070; 94640; 94660; 99291; A4606; C1769; C1874; C1887; C1893; J0360; J1644; J1650; J1815; J2250; J2470; J2919; J3010; J3475; J3490; Q9967

== ENCOUNTER 2024-07-10 04:06 | Emergency (ER) | payer MEDICAID, OTHER ==
[~2024-07-10] VITALS: Ht 175.3 cm; Wt 91.0 kg
[~2024-07-10 04:06] MED LIST changes: +AMLO10TA80 PO; -ATOR40TA70 MT; -CARV6.2548 MT; +CLOP-31 PO; -CLOP75TA15 PO; +COR3 PO; -LOSA25TA26 MT
[2024-07-10 04:07] VITALS: O2SAT 97
[2024-07-10] MEDS: ASPIRIN 325MG EC TABLET PO ONE (05:03)
[2024-07-10 05:11] LABS: BASOPHILS % 1.1 % (0.0-2.0); DIFFERENTIAL COMMENT 0; HEMATOCRIT. 28.1 % (42.0-52.0); LYMPHOCYTES % 8.5 % (20.0-50.0); MEAN CORPUSCULAR HEMOGLOBIN 24.9 pg (28.0-32.0); MEAN CORPUSCULAR HGB CONC 31.9 g/dL (31.0-37.0); MEAN PLATELET VOLUME 8.5 fl (7.4-10.4); MONOCYTES % 7.5 % (2.0-8.0); NEUTROPHILS % 81.9 % (40.0-76.0); PLATELET 267 x1000/uL (130-400); RED CELL DISTRIBUTION WIDTH 15.9 % (11.6-14.6); WHITE BLOOD COUNT 6.3 x1000/uL (4.5-11.0)
[2024-07-10 05:21] LABS: CHLORIDE 109 mEq/L (98-107); SODIUM 144 mEq/L (136-145)
[2024-07-10 05:22] LABS: CALCIUM 9.2 mg/dL (8.7-10.4); CARBON DIOXIDE 26 mEq/L (21-32)
[2024-07-10 05:24] LABS: PARTIAL THROMBOPLASTIN TIME 21.8 sec (23.4-31.0); PROTHROMBIN TIME 11.4 sec (9.6-11.0)
[2024-07-10 05:27] LABS: CREATININE 1.2 mg/dL (0.6-1.3); ETHANOL BLOOD < 10 mg/dL (<10); GLUCOSE 210 mg/dL (70-105); UREA NITROGEN BLOOD 11 mg/dL (9-23)
[2024-07-10 05:29] LABS: TROPONIN I HIGH SENSITIVITY 39 ng/L (3.0-53)
[2024-07-10] MEDS: NITROGLYCERIN OINT 1GM/INCH UDPKT TD NR (06:53)
[2024-07-10] MEDS: FUROSEMIDE 40MG/4ML VIAL IVP NR (06:53)
[2024-07-10 07:41] LABS: CLARITY URINE CLEAR (CLEAR); COLOR URINE YELLOW (YELLOW); GLUCOSE URINE NEGATIVE (NEGATIVE); KETONES URINE NEGATIVE (NEGATIVE); LEUKOCYTE ESTERASE URINE NEGATIVE (NEGATIVE); NITRITE URINE NEGATIVE (NEGATIVE); OCCULT BLOOD URINE NEGATIVE (NEGATIVE); PH URINE 7.5 (4.5-8.0); PROTEIN URINE NEGATIVE (NEGATIVE); SPECIFIC GRAVITY URINE 1.006 (1.005-1.030); UROBILINOGEN URINE 0.2 E.U./dL (0.2-1.0)
[2024-07-10 08:10] LABS: *AMPHETAMINES SCREEN URINE NEGATIVE (NEGATIVE); *BARBITURATES SCREEN URINE NEGATIVE (NEGATIVE); *BENZODIAZEPINES SCREEN URINE NEGATIVE (NEGATIVE)
[2024-07-10 08:11] LABS: *COCAINE SCREEN URINE NEGATIVE (NEGATIVE); CANNABINOID URINE SCREEN PRESUMPTIVE POSITIVE (NEGATIVE); ECSTASY MDMA SCREEN URINE NEGATIVE (NEGATIVE); METHADONE URINE SCREEN NEGATIVE (NEGATIVE); OPIATES URINE SCREEN NEGATIVE (NEGATIVE); PHENCYCLIDINE URINE SCREEN NEGATIVE (NEGATIVE)
[2024-07-10 09:30] VITALS: BP 166/62; PULSE 60; RESP 17; TEMP 36.7; O2SAT 99
[2024-07-10] MEDS ORDERED: DEXTROSE 50% WATER 50ML SYRINGE IV PRN (12:30)
[2024-07-10] MEDS ORDERED: ACETAMINOPHEN 325MG TABLET PO PRN (12:30)
[2024-07-10] MEDS ORDERED: ONDANSETRON HCL 4MG/2ML INJ IV PRN (12:30)
[2024-07-10] MEDS ORDERED: FUROSEMIDE 40MG/4ML VIAL IVP SCH (12:45)
[2024-07-10] MEDS ORDERED: LOSARTAN 100 MG TABLET PO SCH (13:00)
[2024-07-10] MEDS ORDERED: BLOOD SUGAR DIAGNOSTIC STRIP TEST SCH (13:00)
[2024-07-10] MEDS ORDERED: INSULIN LISPRO 100 UNITS/ML SUBCUT SCH (13:20)
[2024-07-10] MEDS ORDERED: ASPIRIN 81MG TABLET PO SCH (15:00)
[2024-07-10] MEDS ORDERED: CLOPIDOGREL 75MG TABLET PO SCH (15:00)
== END 2024-07-10 05:50 | disposition left against medical advice (07) ==
LOC: ER 04:06
DX: J44.89 Other specified chronic obstructive pulmonary disease (principal); I50.23 Acute on chronic systolic (congestive) heart failure; D64.9 Anemia, unspecified; E11.9 Type 2 diabetes mellitus without complications; I11.0 Hypertensive heart disease with heart failure; I25.2 Old myocardial infarction; Z79.899 Other long term (current) drug therapy; Z95.5 Presence of coronary angioplasty implant and graft; Z95.810 Presence of automatic (implantable) cardiac defibrillator; Z20.822 Contact with and (suspected) exposure to COVID-19
CPT/HCPCS: 80305; 80048; 81003; 80320; 83880; 85025; 85610; 85730; 84484; 87804 ×2; 36415; 71045; 93005; 96374; 99285; 87426; J1940; Z7610; A4606; G0480

== ENCOUNTER 2024-08-09 03:58 | Inpatient (IN) | payer OTHER ==
[~2024-08-09] VITALS: Ht 172.7 cm; Wt 66.2 kg
[2024-08-09] VITALS (7 sets, daily range): BP systolic 142–161; BP diastolic 64–76; PULSE 61–102; RESP 16–19; TEMP 36–36.7; O2SAT 96–100
[~2024-08-09 03:58] MED LIST changes: +FURO-152 MT
[2024-08-09 04:46] LABS: BASOPHILS % 1.7 % (0.0-2.0); DIFFERENTIAL COMMENT 0; EOSINOPHILS % 2.1 % (0.0-5.0); HEMATOCRIT. 34.2 % (42.0-52.0); HEMOGLOBIN. 10.5 g/dL (14.0-18.0); LYMPHOCYTES % 17.7 % (20.0-50.0); MEAN CORPUSCULAR HEMOGLOBIN 23.1 pg (28.0-32.0); MEAN CORPUSCULAR HGB CONC 30.8 g/dL (31.0-37.0); MEAN CORPUSCULAR VOLUME 74.9 fL (80.0-94.0); MEAN PLATELET VOLUME 8.5 fl (7.4-10.4); MONOCYTES % 5.9 % (2.0-8.0); NEUTROPHILS % 72.6 % (40.0-76.0); PLATELET 284 x1000/uL (130-400); RED BLOOD CELL COUNT 4.56 mill/uL (4.7-6.1); RED CELL DISTRIBUTION WIDTH 16.7 % (11.6-14.6); WHITE BLOOD COUNT 5.9 x1000/uL (4.5-11.0)
[2024-08-09 04:56] LABS: CARBON DIOXIDE 28 mEq/L (21-32); CHLORIDE 104 mEq/L (98-107); POTASSIUM 3.7 mEq/L (3.5-5.1); SODIUM 141 mEq/L (136-145)
[2024-08-09 04:57] LABS: CALCIUM 9.5 mg/dL (8.7-10.4)
[2024-08-09 05:01] LABS: CREATININE 1.2 mg/dL (0.6-1.3); GLUCOSE 211 mg/dL (70-105)
[2024-08-09 05:02] LABS: UREA NITROGEN BLOOD 14 mg/dL (9-23)
[2024-08-09 05:03] LABS: ETHANOL BLOOD < 10 mg/dL (<10)
[2024-08-09 05:04] LABS: TROPONIN I HIGH SENSITIVITY 35 ng/L (3.0-53)
[2024-08-09] MEDS: NITROGLYCERIN OINT 1GM/INCH UDPKT TD NR (05:34)
[2024-08-09] MEDS: FUROSEMIDE 40MG/4ML VIAL IVP NR (05:34)
[2024-08-09 05:48] LABS: PARTIAL THROMBOPLASTIN TIME 25.6 sec (23.4-31.0); PROTHROMBIN TIME 10.8 sec (9.6-11.0)
[2024-08-09 05:54] LABS: CLARITY URINE CLEAR (CLEAR); COLOR URINE YELLOW (YELLOW); GLUCOSE URINE NEGATIVE (NEGATIVE); KETONES URINE NEGATIVE (NEGATIVE); LEUKOCYTE ESTERASE URINE NEGATIVE (NEGATIVE); NITRITE URINE NEGATIVE (NEGATIVE); OCCULT BLOOD URINE NEGATIVE (NEGATIVE); PROTEIN URINE 1+ (NEGATIVE); SPECIFIC GRAVITY URINE 1.008 (1.005-1.030); UROBILINOGEN URINE 0.2 E.U./dL (0.2-1.0)
[2024-08-09] MEDS: CARVEDILOL 12.5MG TABLET PO NR (06:00)
[2024-08-09] MEDS: AMLODIPINE 5MG TABLET PO NR (06:03)
[2024-08-09 06:13] LABS: *AMPHETAMINES SCREEN URINE NEGATIVE (NEGATIVE); *BARBITURATES SCREEN URINE NEGATIVE (NEGATIVE); *BENZODIAZEPINES SCREEN URINE NEGATIVE (NEGATIVE); *COCAINE SCREEN URINE NEGATIVE (NEGATIVE); METHADONE URINE SCREEN NEGATIVE (NEGATIVE); OPIATES URINE SCREEN NEGATIVE (NEGATIVE)
[2024-08-09 06:14] LABS: CANNABINOID URINE SCREEN PRESUMPTIVE POSITIVE (NEGATIVE); ECSTASY MDMA SCREEN URINE NEGATIVE (NEGATIVE); PHENCYCLIDINE URINE SCREEN NEGATIVE (NEGATIVE)
[2024-08-09] MEDS ORDERED: ACETAMINOPHEN 650MG/20.3ML UDC GT PRN (06:15)
[2024-08-09] MEDS ORDERED: MAGNESIUM/ALUMINUM HYDROXIDE/SIMETHICONE 30ML UDC PO PRN (06:15)
[2024-08-09] MEDS ORDERED: ONDANSETRON HCL 4MG/2ML INJ IV PRN (06:15)
[2024-08-09] MEDS ORDERED: DEXTROSE 50% WATER 50ML SYRINGE IV PRN (06:30)
[2024-08-09 06:47] LABS: BACTERIA URINE NONE SEEN; RBC URINE 0-2 /hpf (0-2); SQUAMOUS EPITHELIAL CELL URINE NONE SEEN /lpf (RARE/1+); WBC URINE 0-2 /hpf (0-2)
[2024-08-09] MEDS: LOSARTAN 50 MG TABLET PO SCH (07:12)
[2024-08-09] MEDS: EMPAGLIFLOZIN 10MG TABLET PO SCH (07:13)
[2024-08-09] MEDS: SPIRONOLACTONE 25MG TABLET PO SCH (07:13)
[2024-08-09 08:25] LABS: IRON 33 ug/dL (65-175)
[2024-08-09 08:26] LABS: TRIGLYCERIDE 104 mg/dL (0-150)
[2024-08-09 08:27] LABS: LDL CHOLESTEROL 118 mg/dL (5-100)
[2024-08-09 08:28] LABS: CHOLESTEROL 175 mg/dL (<200); HDL CHOLESTEROL 43 mg/dL (>55); TOTAL IRON BINDING CAPACITY 411 ug/dl (250-425)
[2024-08-09] MEDS: INSULIN LISPRO 100 UNITS/ML SUBCUT SCH (10:06)
[2024-08-09] MEDS: BLOOD SUGAR DIAGNOSTIC STRIP TEST SCH (10:06)
[2024-08-09] MEDS: CARVEDILOL 6.25 MG TABLET PO SCH (10:09)
[2024-08-09] MEDS: CLOPIDOGREL 75MG TABLET PO SCH (10:10)
[2024-08-09] MEDS: ASPIRIN 81MG EC TABLET PO SCH (10:10)
[2024-08-09] MEDS: FERROUS SULFATE 325MG TABLET PO SCH (10:10)
[2024-08-09] MEDS: ENOXAPARIN 40MG/0.4ML SYR SUBCUT SCH (10:11)
[2024-08-09 11:07] LABS: LACTIC ACID 2.3 mmol/L (0.4-2.0)
[2024-08-09] MEDS: FLUTICASONE PROPIONATE 50MCG/SPRAY BOTTLE BOTHNSTRLS SCH (11:27)
[2024-08-09] MEDS: ACETAMINOPHEN 325MG TABLET PO PRN (15:01)
[2024-08-09] MEDS: FUROSEMIDE 40MG/4ML VIAL IV SCH (15:02)
[2024-08-09] MEDS: HYDRALAZINE 20MG/ML VIAL IV PRN (15:03)
[2024-08-09] MEDS: IPRATROPIUM/ALBUTEROL 0.5-3(2.5)MG/3ML NEB HHN PRN (15:35)
[2024-08-09] MEDS ORDERED: GUAIFENESIN 200MG/10ML SUGAR FREE UDC PO PRN (17:45)
[2024-08-09] MEDS: GUAIFENESIN 200MG/10ML SUGAR FREE UDC PO PRN (17:51)
[2024-08-09] MEDS: CARVEDILOL 3.125 MG TABLET PO SCH (20:30)
[2024-08-09] MEDS: LORAZEPAM 0.5MG TABLET PO PRN (20:30)
[2024-08-09] MEDS: ATORVASTATIN CALCIUM 40MG TABLET PO SCH (20:32)
[2024-08-10] VITALS (7 sets, daily range): BP systolic 124–184; BP diastolic 52–82; PULSE 60–80; RESP 16–19; TEMP 36.3–36.8; O2SAT 95–99
[2024-08-10 08:21] LABS: T4 FREE 1.61 ng/dL (0.89-1.76); THYROID STIMULATING HORMONE 0.77 uIU/mL (0.55-4.78)
[2024-08-10 08:23] LABS: BASOPHILS % 2.1 % (0.0-2.0); DIFFERENTIAL COMMENT 0; EOSINOPHILS % 1.3 % (0.0-5.0); HEMATOCRIT. 38.5 % (42.0-52.0); HEMOGLOBIN. 12.1 g/dL (14.0-18.0); LYMPHOCYTES % 22.9 % (20.0-50.0); MEAN CORPUSCULAR HEMOGLOBIN 23.1 pg (28.0-32.0); MEAN CORPUSCULAR HGB CONC 31.4 g/dL (31.0-37.0); MEAN CORPUSCULAR VOLUME 73.6 fL (80.0-94.0); MEAN PLATELET VOLUME 8.6 fl (7.4-10.4); MONOCYTES % 9.8 % (2.0-8.0); NEUTROPHILS % 63.9 % (40.0-76.0); PLATELET 322 x1000/uL (130-400); RED BLOOD CELL COUNT 5.22 mill/uL (4.7-6.1); RED CELL DISTRIBUTION WIDTH 16.9 % (11.6-14.6); WHITE BLOOD COUNT 4.4 x1000/uL (4.5-11.0)
[2024-08-10 08:24] LABS: CARBON DIOXIDE 26 mEq/L (21-32); CHLORIDE 101 mEq/L (98-107); POTASSIUM 3.5 mEq/L (3.5-5.1); SODIUM 140 mEq/L (136-145)
[2024-08-10 08:25] LABS: CALCIUM 10.2 mg/dL (8.7-10.4)
[2024-08-10 08:28] LABS: HEPATITIS B SURFACE ANTIGEN NEGATIVE (Negative)
[2024-08-10 08:29] LABS: IRON 34 ug/dL (65-175)
[2024-08-10 08:30] LABS: CREATININE 1.2 mg/dL (0.6-1.3); GLUCOSE 132 mg/dL (70-105); TOTAL IRON BINDING CAPACITY 428 ug/dl (250-425); UREA NITROGEN BLOOD 17 mg/dL (9-23)
[2024-08-10 08:31] LABS: ALANINE AMINOTRANSFERASE 38 IU/L (10-49); ALBUMIN 4.3 g/dL (3.2-4.8); ASPARTATE AMINOTRANSFERASE 23 IU/L (<34)
[2024-08-10 08:32] LABS: BILIRUBIN DIRECT 0.2 mg/dL (<=3.0); BILIRUBIN TOTAL 0.7 mg/dL (0.1-1.0); CREATINE KINASE 63 IU/L (46-171); PROTEIN TOTAL 6.9 g/dL (6.0-8.3)
[2024-08-10 08:49] LABS: HEPATITIS C AB NON REACTIVE (Neg) (Negative)
[2024-08-10] MEDS ORDERED: LOSARTAN 25 MG TABLET PO SCH (09:00)
[2024-08-10] MEDS: SACUBITRIL/VALSARTAN 24MG/26MG TABLET PO SCH (09:36)
[2024-08-10] MEDS: AMLODIPINE 10MG TABLET PO SCH (09:40)
[2024-08-10] MEDS: MAGNESIUM 2 G PREMIX 50 ML IV NR (12:47)
[2024-08-10] MEDS: POTASSIUM CHLORIDE 20MEQ TABLET SR PO NR (12:48)
[2024-08-11] VITALS (7 sets, daily range): BP systolic 116–125; BP diastolic 50–80; PULSE 60–86; RESP 15–18; TEMP 36.3–37.1; O2SAT 97–99
[2024-08-11 07:27] LABS: CALCIUM 9.7 mg/dL (8.7-10.4); CARBON DIOXIDE 30 mEq/L (21-32); CHLORIDE 98 mEq/L (98-107); POTASSIUM 3.5 mEq/L (3.5-5.1); SODIUM 139 mEq/L (136-145)
[2024-08-11 07:33] LABS: CREATININE 1.3 mg/dL (0.6-1.3); GLUCOSE 122 mg/dL (70-105); UREA NITROGEN BLOOD 24 mg/dL (9-23)
[2024-08-11 07:37] LABS: DIFFERENTIAL COMMENT 0; EOSINOPHILS % 1.4 % (0.0-5.0); HEMATOCRIT. 39.5 % (42.0-52.0); HEMOGLOBIN. 12.4 g/dL (14.0-18.0); MEAN CORPUSCULAR HEMOGLOBIN 23.1 pg (28.0-32.0); MEAN CORPUSCULAR HGB CONC 31.4 g/dL (31.0-37.0); MEAN CORPUSCULAR VOLUME 73.6 fL (80.0-94.0); MEAN PLATELET VOLUME 8.6 fl (7.4-10.4); MONOCYTES % 10.6 % (2.0-8.0); PLATELET 373 x1000/uL (130-400); RED BLOOD CELL COUNT 5.36 mill/uL (4.7-6.1); RED CELL DISTRIBUTION WIDTH 16.9 % (11.6-14.6); WHITE BLOOD COUNT 5.2 x1000/uL (4.5-11.0)
[2024-08-11] MEDS ORDERED: METF-416 PO (12:07)
[2024-08-11] MEDS ORDERED: COR3 PO ×2 (12:12)
[2024-08-11] MEDS ORDERED: SPIR25TA PO (12:12)
[2024-08-11] MEDS ORDERED: AMLO10TA80 PO ×2 (12:12)
[2024-08-11] MEDS ORDERED: SACU1TAB PO (12:12)
[2024-08-11] MEDS ORDERED: EMPA10TA PO (12:12)
[2024-08-11] MEDS ORDERED: CLOP-31 PO ×2 (12:12)
[2024-08-11] MEDS ORDERED: TOPUD PO (12:12)
[2024-08-11] MEDS ORDERED: ASPI-1406 PO ×2 (12:12)
[2024-08-11] MEDS ORDERED: FLUT1DIS3 INH (12:12)
[2024-08-11] MEDS ORDERED: FURO-152 MT (12:12)
[2024-08-11] MEDS ORDERED: LIP40 PO (12:12)
[2024-08-11] MEDS ORDERED: FERR-63 PO (12:12)
[2024-08-11] MEDS ORDERED: ALBU18HF2 IH (12:12)
== END 2024-08-11 15:30 | disposition home or self-care (01) | DRG 194 ==
LOC: ER 03:58 → EDBEDREQTM 05:35 → EDBEDREQ 05:35 → 6WST 06:00 → EDBEDREQTM 06:26 → EDBEDREQSVC 06:26
PROVIDERS: ADMIT Internal Medicine; ATTEND Internal Medicine
DX: I11.0 Hypertensive heart disease with heart failure (principal); J96.02 Acute respiratory failure with hypercapnia; I42.9 Cardiomyopathy, unspecified; J44.1 Chronic obstructive pulmonary disease with (acute) exacerbation; E11.9 Type 2 diabetes mellitus without complications; D50.9 Iron deficiency anemia, unspecified; I50.23 Acute on chronic systolic (congestive) heart failure; I25.10 Atherosclerotic heart disease of native coronary artery without angina pectoris; E78.5 Hyperlipidemia, unspecified; I25.2 Old myocardial infarction; Z95.5 Presence of coronary angioplasty implant and graft; Z95.810 Presence of automatic (implantable) cardiac defibrillator; Z87.891 Personal history of nicotine dependence; Z79.84 Long term (current) use of oral hypoglycemic drugs; Z79.899 Other long term (current) drug therapy; Z79.51 Long term (current) use of inhaled steroids
CPT/HCPCS: 36415; 71045; 80048; 80061; 80076; 80305; 80320; 81003; 82550; 82728; 82962; 83036; 83540; 83550; 83605; 83735; 83880; 84145; 84439; 84443; 84484; 85025; 85379; 86705; 87340; 93005; 93970; 94640; 94760; 97165; 99285; A4606; J0360; J1650; J1940; J3475; G0480

== ENCOUNTER 2024-10-01 05:36 | Inpatient (IN) | payer OTHER ==
[~2024-10-01] VITALS: Ht 177.8 cm; Wt 83.5 kg
[~2024-10-01 05:36] MED LIST changes: -ALBU90AE INH; +EMPA10TA PO; +FERR-63 PO; -FERR325T30 PO; -GLIP10TA17 PO; +LIP40 PO; +METF-416 PO; -MULT-13 MT; -POTA-189 PO; +SACU1TAB PO; +SPIR25TA PO; +TOPUD PO; -TRAM50TA3 MT
[2024-10-01 06:18] LABS: BASOPHILS % 1.5 % (0.0-2.0); DIFFERENTIAL COMMENT 0; EOSINOPHILS % 1.7 % (0.0-5.0); HEMATOCRIT. 38.1 % (42.0-52.0); LYMPHOCYTES % 10.4 % (20.0-50.0); MEAN CORPUSCULAR HEMOGLOBIN 25.2 pg (28.0-32.0); MEAN CORPUSCULAR HGB CONC 31.6 g/dL (31.0-37.0); MEAN CORPUSCULAR VOLUME 79.6 fL (80.0-94.0); MEAN PLATELET VOLUME 7.9 fl (7.4-10.4); MONOCYTES % 4.9 % (2.0-8.0); NEUTROPHILS % 81.5 % (40.0-76.0); PLATELET 225 x1000/uL (130-400); RED BLOOD CELL COUNT 4.78 mill/uL (4.7-6.1); RED CELL DISTRIBUTION WIDTH 18.7 % (11.6-14.6); WHITE BLOOD COUNT 6.2 x1000/uL (4.5-11.0)
[2024-10-01 06:32] LABS: CHLORIDE 108 mEq/L (98-107); POTASSIUM 3.7 mEq/L (3.5-5.1); SODIUM 140 mEq/L (136-145)
[2024-10-01 06:33] LABS: CALCIUM 9.4 mg/dL (8.7-10.4); CARBON DIOXIDE 28 mEq/L (21-32)
[2024-10-01 06:38] LABS: CREATININE 1.2 mg/dL (0.6-1.3); GLUCOSE 224 mg/dL (70-105); UREA NITROGEN BLOOD 13 mg/dL (9-23)
[2024-10-01 06:40] LABS: TROPONIN I HIGH SENSITIVITY 33 ng/L (3.0-53)
[2024-10-01 08:00] VITALS: BP 178/88; PULSE 60; RESP 20; TEMP 37.1; O2SAT 94
[2024-10-01 08:55] VITALS: PULSE 69; RESP 16; O2SAT 100
[2024-10-01] MEDS: ALBUTEROL (0.083%) 2.5MG/3ML NEB HHN STA (08:55)
[2024-10-01] MEDS: IPRATROPIUM BROMIDE (0.02%) 0.5MG/2.5ML NEB HHN STA (08:55)
[2024-10-01] MEDS: METHYLPREDNISOLONE SOD SUCC 125MG/2ML (ACT-O-VIAL) IV STA (09:02)
[2024-10-01 09:18] LABS: TROPONIN I HIGH SENSITIVITY 63 ng/L (3.0-53)
[2024-10-01 10:00] VITALS: BP 186/88; PULSE 60; RESP 20; TEMP 37.1
[2024-10-01 10:36] LABS: TROPONIN I HIGH SENSITIVITY 68 ng/L (3.0-53)
[2024-10-01] MEDS ORDERED: DOCUSATE SODIUM 100MG CAPSULE PO PRN (11:30)
[2024-10-01] MEDS ORDERED: DEXTROSE 50% WATER 50ML SYRINGE IV PRN (11:30)
[2024-10-01] MEDS ORDERED: ACETAMINOPHEN 325MG TABLET PO PRN (11:30)
[2024-10-01] MEDS ORDERED: LORAZEPAM 0.5MG TABLET PO PRN (11:30)
[2024-10-01] MEDS ORDERED: HYDRALAZINE 20MG/ML VIAL IV PRN (11:30)
[2024-10-01] MEDS: ASPIRIN 81MG EC TABLET PO NR (11:51)
[2024-10-01] MEDS: ENOXAPARIN 40MG/0.4ML SYR SUBCUT SCH (11:51)
[2024-10-01] MEDS: CARVEDILOL 3.125 MG TABLET PO NR (11:51)
[2024-10-01] MEDS: FUROSEMIDE 40MG/4ML VIAL IVP NR (11:51)
[2024-10-01] MEDS: AMLODIPINE 5MG TABLET PO NR (11:52)
[2024-10-01 12:00] VITALS: BP 139/62; PULSE 86; RESP 18; TEMP 36.5; O2SAT 98
[2024-10-01] MEDS: BLOOD SUGAR DIAGNOSTIC STRIP TEST SCH (12:10)
[2024-10-01] MEDS: ONDANSETRON HCL 4MG/2ML INJ IV PRN (12:18)
[2024-10-01] MEDS: INSULIN LISPRO 100 UNITS/ML SUBCUT SCH (12:18)
[2024-10-01] MEDS: CLOPIDOGREL 75MG TABLET PO NR (12:18)
[2024-10-01] MEDS: ACETAMINOPHEN 325MG TABLET PO PRN (12:18)
[2024-10-01 16:00] VITALS: BP 160/81; PULSE 90; RESP 18; TEMP 36.7; O2SAT 98
[2024-10-01] MEDS: CLONIDINE 0.1MG TABLET PO PRN (17:16)
[2024-10-01 19:47] LABS: CREATINE KINASE MB FRACTION 4.2 ng/mL (0.5-3.6)
[2024-10-01 20:00] VITALS: BP 128/70; PULSE 82; RESP 18; TEMP 36.7; O2SAT 100
[2024-10-01] MEDS: CARVEDILOL 3.125 MG TABLET PO SCH (20:30)
[2024-10-01] MEDS: FAMOTIDINE 20MG TABLET PO SCH (20:30)
[2024-10-01] MEDS: AMLODIPINE 5MG TABLET PO SCH (20:30)
[2024-10-01] MEDS: SACUBITRIL/VALSARTAN 24MG/26MG TABLET PO SCH (20:30)
[2024-10-01 22:34] LABS: TROPONIN I HIGH SENSITIVITY 34 ng/L (3.0-53)
[2024-10-02] VITALS (7 sets, daily range): BP systolic 128–159; BP diastolic 76–85; PULSE 69–101; RESP 16–22; TEMP 36.3–36.7; O2SAT 94–100
[2024-10-02 08:18] LABS: CHLORIDE 104 mEq/L (98-107); SODIUM 140 mEq/L (136-145)
[2024-10-02 08:19] LABS: CALCIUM 10.2 mg/dL (8.7-10.4); CARBON DIOXIDE 30 mEq/L (21-32)
[2024-10-02 08:20] LABS: BASOPHILS % 0.8 % (0.0-2.0); DIFFERENTIAL COMMENT 0; EOSINOPHILS % 0.3 % (0.0-5.0); HEMATOCRIT. 45.9 % (42.0-52.0); LYMPHOCYTES % 18.2 % (20.0-50.0); MEAN CORPUSCULAR HEMOGLOBIN 24.8 pg (28.0-32.0); MEAN CORPUSCULAR HGB CONC 31.8 g/dL (31.0-37.0); MEAN CORPUSCULAR VOLUME 78.1 fL (80.0-94.0); MEAN PLATELET VOLUME 8.2 fl (7.4-10.4); MONOCYTES % 6.8 % (2.0-8.0); NEUTROPHILS % 73.9 % (40.0-76.0); PLATELET 272 x1000/uL (130-400); RED BLOOD CELL COUNT 5.88 mill/uL (4.7-6.1); RED CELL DISTRIBUTION WIDTH 19.3 % (11.6-14.6); WHITE BLOOD COUNT 7.2 x1000/uL (4.5-11.0)
[2024-10-02 08:24] LABS: CREATININE 0.9 mg/dL (0.6-1.3); GLUCOSE 124 mg/dL (70-105); TROPONIN I HIGH SENSITIVITY 38 ng/L (3.0-53); UREA NITROGEN BLOOD 14 mg/dL (9-23)
[2024-10-02] MEDS: FUROSEMIDE 40MG/4ML VIAL IVP SCH (09:00)
[2024-10-02 09:56] LABS: HEMOGLOBIN. 14.6 g/dL (14.0-18.0)
[2024-10-02] MEDS: ASPIRIN 81MG EC TABLET PO SCH (11:35)
[2024-10-02] MEDS: CLOPIDOGREL 75MG TABLET PO SCH (11:37)
[2024-10-02] MEDS: GUAIFENESIN 200MG/10ML SUGAR FREE UDC PO PRN (15:46)
[2024-10-02] MEDS: IPRATROPIUM/ALBUTEROL 0.5-3(2.5)MG/3ML NEB HHN PRN (17:44)
[2024-10-02] MEDS ORDERED: ALBUTEROL 6.7GM HFA INHALER INH PRN (20:30)
[2024-10-02] MEDS: ALBUTEROL (0.083%) 2.5MG/3ML NEB HHN PRN (21:47)
[2024-10-02] MEDS: FLUTICASONE PROPIONATE 50MCG/SPRAY BOTTLE BOTHNSTRLS SCH (21:52)
[2024-10-03 04:00] VITALS: BP 111/74; PULSE 85; RESP 18; TEMP 36.7; O2SAT 98
[2024-10-03 06:42] LABS: BASOPHILS % 1.4 % (0.0-2.0); DIFFERENTIAL COMMENT 0; EOSINOPHILS % 1.4 % (0.0-5.0); HEMATOCRIT. 47.1 % (42.0-52.0); HEMOGLOBIN. 14.9 g/dL (14.0-18.0); LYMPHOCYTES % 35.2 % (20.0-50.0); MEAN CORPUSCULAR HEMOGLOBIN 24.6 pg (28.0-32.0); MEAN CORPUSCULAR HGB CONC 31.7 g/dL (31.0-37.0); MEAN CORPUSCULAR VOLUME 77.8 fL (80.0-94.0); PLATELET 264 x1000/uL (130-400); RED BLOOD CELL COUNT 6.06 mill/uL (4.7-6.1); RED CELL DISTRIBUTION WIDTH 18.9 % (11.6-14.6); WHITE BLOOD COUNT 4.2 x1000/uL (4.5-11.0)
[2024-10-03 07:13] LABS: CHLORIDE 104 mEq/L (98-107); POTASSIUM 3.8 mEq/L (3.5-5.1); SODIUM 139 mEq/L (136-145)
[2024-10-03 07:14] LABS: CALCIUM 9.1 mg/dL (8.7-10.4); CARBON DIOXIDE 26 mEq/L (21-32)
[2024-10-03 07:16] LABS: TROPONIN I HIGH SENSITIVITY 32 ng/L (3.0-53)
[2024-10-03 07:19] LABS: GLUCOSE 120 mg/dL (70-105); UREA NITROGEN BLOOD 16 mg/dL (9-23)
[2024-10-03] MEDS ORDERED: LIP40 PO (10:09)
[2024-10-03] MEDS ORDERED: AMLO5TAB88 PO (10:09)
[2024-10-03] MEDS ORDERED: ASPI-1406 PO (10:09)
[2024-10-03] MEDS ORDERED: ALBU18HF2 IH (10:09)
[2024-10-03] MEDS ORDERED: METF-416 PO (10:09)
[2024-10-03] MEDS ORDERED: EMPA10TA PO (10:09)
[2024-10-03] MEDS ORDERED: CLOP-31 PO (10:09)
[2024-10-03] MEDS ORDERED: FLUT1DIS3 INH (10:09)
[2024-10-03] MEDS ORDERED: COR3 PO (10:09)
[2024-10-03] MEDS ORDERED: FLUT16SP15 BOTHNSTRLS (10:09)
[2024-10-03] MEDS ORDERED: SACU1TAB PO (10:09)
[2024-10-03] MEDS: MAGNESIUM OXIDE 400MG TABLET PO SCH (10:31)
[2024-10-03] MEDS: MAGNESIUM 2 G PREMIX 50 ML IV NR (12:46)
[2024-10-03 15:09] VITALS: BP 134/88; PULSE 92; TEMP 97.6; O2SAT 95
== END 2024-10-03 15:50 | disposition home or self-care (01) | DRG 140 ==
LOC: ER 05:36 → 8WST 08:37
PROVIDERS: ADMIT Internal Medicine; ATTEND Internal Medicine
DX: J44.1 Chronic obstructive pulmonary disease with (acute) exacerbation (principal); I50.23 Acute on chronic systolic (congestive) heart failure; I21.A1 Myocardial infarction type 2; I47.20 Ventricular tachycardia, unspecified; I16.1 Hypertensive emergency; I11.0 Hypertensive heart disease with heart failure; E11.65 Type 2 diabetes mellitus with hyperglycemia; E83.42 Hypomagnesemia; I25.5 Ischemic cardiomyopathy; I25.10 Atherosclerotic heart disease of native coronary artery without angina pectoris; E78.5 Hyperlipidemia, unspecified; F17.210 Nicotine dependence, cigarettes, uncomplicated; Z79.02 Long term (current) use of antithrombotics/antiplatelets; Z95.5 Presence of coronary angioplasty implant and graft; Z79.51 Long term (current) use of inhaled steroids; Z79.82 Long term (current) use of aspirin; Z79.84 Long term (current) use of oral hypoglycemic drugs; Z79.899 Other long term (current) drug therapy; Z95.810 Presence of automatic (implantable) cardiac defibrillator
CPT/HCPCS: 36415; 71045; 80048; 80061; 82553; 82962; 83036; 83735; 83880; 84484; 85025; 93005; 93306; 94070; 94640; 94664; 97162; 97165; 98960; 99285; J0360; J1650; J1815; J1940; J2405; J2919; J3475

== ENCOUNTER 2025-01-17 00:07 | Inpatient (IN) | payer MEDICAID ==
[~2025-01-17] VITALS: Ht 165.1 cm; Wt 68.9 kg
[2025-01-17] VITALS (19 sets, daily range): BP systolic 109–158; BP diastolic 60–86; PULSE 67–102; RESP 16–33; TEMP 36.4–36.9; O2SAT 93–100
[~2025-01-17 00:07] MED LIST changes: -AMLO10TA80 PO; +AMLO5TAB88 PO; -FLUT16SP15 BOTHNSTRLS; -FURO-152 MT
[2025-01-17] MEDS: NITROGLYCERIN 50MG PREMIX 250 ML IV STA (00:12)
[2025-01-17] MEDS ORDERED: ALBUTEROL (0.083%) 2.5MG/3ML NEB HHN ONE (00:15)
[2025-01-17 00:39] LABS: BASOPHILS % 1.5 % (0.0-2.0); EOSINOPHILS % 2.4 % (0.0-5.0); HEMATOCRIT. 38.2 % (42.0-52.0); HEMOGLOBIN. 12.1 g/dL (14.0-18.0); LYMPHOCYTES % 41.9 % (20.0-50.0); MEAN PLATELET VOLUME 8.3 fl (7.4-10.4); MONOCYTES % 9.3 % (2.0-8.0); NEUTROPHILS % 44.9 % (40.0-76.0); PLATELET 274 x1000/uL (130-400); RED BLOOD CELL COUNT 4.31 mill/uL (4.7-6.1); RED CELL DISTRIBUTION WIDTH 15.7 % (11.6-14.6)
[2025-01-17 00:45] LABS: CREATININE 1.4 mg/dL (0.6-1.3); UREA NITROGEN BLOOD 12 mg/dL (9-23)
[2025-01-17 00:47] LABS: TROPONIN I HIGH SENSITIVITY 34 ng/L (3.0-53)
[2025-01-17] MEDS: ALBUTEROL (0.083%) 2.5MG/3ML NEB HHN SCH (00:49)
[2025-01-17 00:51] LABS: BG BASE EXCESS -7.0 mmol/L (-2.0-3.0); BG CARBOXYHEMOGLOBIN 1.6 % (0.5-1.5); BG DEOXYHEMOGLOBIN 1.0 % (0.0-5.0); BG FRACTION INSPIRED OXYGEN 50; BG HCO3 ACT 20.7 mmol/L (21.0-28.0); BG METHEMOGLOBIN 0.1 % (0.5-1.5); BG OXYGEN SATURATION 99.0 % (94.0-98.0); BG OXYHEMOGLOBIN 97.3 % (94.0-98.0); BG PCO2 50.7 mmHg (35.0-48.0); BG PH 7.228 (7.350-7.450); BG PO2 159.9 mmHg (83.0-108.0); BG SAMPLE SITE RIGHT RADIAL; BG TOTAL HEMOGLOBIN 11.8 g/dL (13.5-17.5); BG TOTAL RESPIRATORY RATE 30 b/min; BG VENT MODE MASK - BIPAP; BG VENT RATE 16.0 set
[2025-01-17 00:53] LABS: INR 1.0
[2025-01-17] MEDS: METHYLPREDNISOLONE SOD SUCC 125MG/2ML (ACT-O-VIAL) IV ONE (01:14)
[2025-01-17] MEDS: FUROSEMIDE 40MG/4ML VIAL IV ONE (01:14)
[2025-01-17] MEDS ORDERED: DEXTROSE 50% WATER 50ML SYRINGE IV PRN (04:30)
[2025-01-17] MEDS: BLOOD SUGAR DIAGNOSTIC STRIP TEST SCH (08:17)
[2025-01-17] MEDS: ASPIRIN 81MG TABLET PO SCH (09:23)
[2025-01-17] MEDS: CARVEDILOL 3.125 MG TABLET PO SCH (09:23)
[2025-01-17] MEDS: AMLODIPINE 5MG TABLET PO SCH (09:23)
[2025-01-17] MEDS: INSULIN LISPRO 100 UNITS/ML SUBCUT SCH (09:28)
[2025-01-17] MEDS: FUROSEMIDE 40MG/4ML VIAL IVP SCH ×2 (11:30→17:15)
[2025-01-17] MEDS ORDERED: NALOXONE HCL 0.4MG/ML VIAL IV PRN (11:45)
[2025-01-17] MEDS: HYDROCODONE/ACETAMINOPHEN 5/325MG TABLET PO PRN (12:40)
[2025-01-17] MEDS: LOSARTAN 50 MG TABLET PO SCH (13:17)
[2025-01-17] MEDS: CLOPIDOGREL 75MG TABLET PO SCH (13:17)
[2025-01-17] MEDS ORDERED: GUAIFENESIN-DM 200MG-20MG/10ML UDC PO PRN (14:15)
[2025-01-17] MEDS: GUAIFENESIN-DM 200MG-20MG/10ML UDC PO PRN (15:26)
[2025-01-17] MEDS: NITROGLYCERIN OINT 1GM/INCH UDPKT TD SCH (19:18)
[2025-01-17] MEDS: CARVEDILOL 6.25 MG TABLET PO SCH (21:25)
[2025-01-17] MEDS: ATORVASTATIN CALCIUM 40MG TABLET PO SCH (21:25)
[2025-01-17] MEDS: FLUTICASONE PROPIONATE 50MCG/SPRAY BOTTLE BOTHNSTRLS SCH (21:26)
[2025-01-17] MEDS ORDERED: INSULIN GLARGINE 100 UNITS/ML SUBCUT SCH (22:00)
[2025-01-17] MEDS: IPRATROPIUM/ALBUTEROL 0.5-3(2.5)MG/3ML NEB HHN SCH (22:15)
[2025-01-18] VITALS (10 sets, daily range): BP systolic 113–141; BP diastolic 58–91; PULSE 74–92; RESP 15–19; TEMP 36.5–36.7; O2SAT 94–100
[2025-01-18 06:28] LABS: CREATININE 1.0 mg/dL (0.6-1.3); UREA NITROGEN BLOOD 15 mg/dL (9-23)
[2025-01-18] MEDS: POTASSIUM CHLORIDE 20MEQ TABLET SR PO SCH (11:17)
[2025-01-18] MEDS ORDERED: FLUT1DIS3 INH (18:27)
[2025-01-18] MEDS ORDERED: ASPI-1406 PO (18:27)
[2025-01-18] MEDS ORDERED: ALBU18HF2 IH (18:27)
[2025-01-18] MEDS ORDERED: COR6 PO (18:27)
[2025-01-18] MEDS ORDERED: SACU1TAB PO (18:27)
[2025-01-18] MEDS ORDERED: FURO-151 MT (18:27)
[2025-01-18] MEDS ORDERED: SPIR25TA PO (18:27)
[2025-01-18] MEDS ORDERED: CLOP-31 PO (18:27)
== END 2025-01-18 20:40 | disposition home or self-care (01) | DRG 133 ==
LOC: ER 00:07 → 5EST 01:56 → EDBEDREQSVC 02:36 → ER 02:37 → 8WST 01-18 13:12
PROVIDERS: ADMIT Internal Medicine; ATTEND Internal Medicine
PROC: 5A09357 Assistance with Respiratory Ventilation, Less than 24 Consecutive Hours, Continuous Positive Airway Pressure (ICD-10-PCS; principal; 2025-01-17)
DX: J96.21 Acute and chronic respiratory failure with hypoxia (principal); N17.0 Acute kidney failure with tubular necrosis; I50.23 Acute on chronic systolic (congestive) heart failure; J44.1 Chronic obstructive pulmonary disease with (acute) exacerbation; D64.9 Anemia, unspecified; E11.9 Type 2 diabetes mellitus without complications; E78.5 Hyperlipidemia, unspecified; I11.0 Hypertensive heart disease with heart failure; E87.6 Hypokalemia; F31.9 Bipolar disorder, unspecified; I25.5 Ischemic cardiomyopathy; F12.90 Cannabis use, unspecified, uncomplicated; I25.10 Atherosclerotic heart disease of native coronary artery without angina pectoris; Z95.5 Presence of coronary angioplasty implant and graft; Z87.891 Personal history of nicotine dependence; I25.2 Old myocardial infarction; Z79.899 Other long term (current) drug therapy; Z79.02 Long term (current) use of antithrombotics/antiplatelets; Z79.82 Long term (current) use of aspirin; Z95.0 Presence of cardiac pacemaker; Z91.199 Patient's noncompliance with other medical treatment and regimen due to unspecified reason
CPT/HCPCS: 36415; 36600; 71045; 80048; 82375; 82805; 82962; 83735; 83880; 84484; 85025; 93306; 94070; 94640; 94660; 94664; 94760; 98960; 99291; A4606; J1815; J1938; J2919

== ENCOUNTER 2025-02-20 21:36 | Inpatient (IN) | payer MEDICAID ==
[~2025-02-20] VITALS: Ht 175.3 cm; Wt 66.7 kg
[~2025-02-20 21:36] MED LIST changes: +COR12 MT; +FURO-151 MT
[2025-02-20] MEDS: ONDANSETRON HCL 4MG/2ML INJ IV ONE (23:58)
[2025-02-20] MEDS: MORPHINE SULFATE 4 MG/ML INJ (FOR IV/IM USE) IV ONE (23:58)
[2025-02-21 00:56] LABS: BASOPHILS % 1.2 % (0.0-2.0); EOSINOPHILS % 2.9 % (0.0-5.0); HEMATOCRIT. 26.0 % (42.0-52.0); HEMOGLOBIN. 8.6 g/dL (14.0-18.0); LYMPHOCYTES % 35.3 % (20.0-50.0); MEAN PLATELET VOLUME 8.0 fl (7.4-10.4); MONOCYTES % 8.1 % (2.0-8.0); NEUTROPHILS % 52.5 % (40.0-76.0); PLATELET 277 x1000/uL (130-400); RED BLOOD CELL COUNT 2.99 mill/uL (4.7-6.1); RED CELL DISTRIBUTION WIDTH 14.0 % (11.6-14.6)
[2025-02-21 01:03] LABS: CREATININE 1.5 mg/dL (0.6-1.3); UREA NITROGEN BLOOD 23.0 mg/dL (9-23)
[2025-02-21 01:06] LABS: ASPARTATE AMINOTRANSFERASE 47 IU/L (<34); BILIRUBIN DIRECT < 0.1 mg/dL (<=3.0)
[2025-02-21 01:07] LABS: BILIRUBIN TOTAL 0.2 mg/dL (0.1-1.0); PROTEIN TOTAL 6.3 g/dL (6.0-8.3)
[2025-02-21 01:08] LABS: TROPONIN I HIGH SENSITIVITY 99 ng/L (3.0-53)
[2025-02-21] MEDS ORDERED: ONDANSETRON HCL 4MG/2ML INJ IV NR (01:15)
[2025-02-21] MEDS ORDERED: MORPHINE SULFATE 4 MG/ML INJ (FOR IV/IM USE) IV NR (01:15)
[2025-02-21] MEDS ORDERED: NITROGLYCERIN 0.4MG TABLET SL SL NR (01:15)
[2025-02-21] MEDS: NITROGLYCERIN 0.4MG TABLET SL SL NR (01:17)
[2025-02-21] MEDS: NITROGLYCERIN 0.4MG TABLET SL SL ONE (01:18)
[2025-02-21 03:00] VITALS: BP 122/53; PULSE 88; RESP 18; TEMP 36.1956
[2025-02-21 04:00] VITALS: BP 157/74; PULSE 84; RESP 20; TEMP 36.1; O2SAT 97
[2025-02-21] MEDS ORDERED: DEXTROSE 50% WATER 50ML SYRINGE IV PRN ×2 (04:00→12:45)
[2025-02-21] MEDS: BLOOD SUGAR DIAGNOSTIC STRIP TEST SCH (07:03)
[2025-02-21] MEDS: INSULIN LISPRO 100 UNITS/ML SUBCUT SCH ×2 (07:20→12:50)
[2025-02-21 08:00] VITALS: BP 129/60; PULSE 67; RESP 16; TEMP 36.2; O2SAT 95
[2025-02-21 08:11] LABS: CLARITY URINE CLEAR (CLEAR); COLOR URINE YELLOW (YELLOW); GLUCOSE URINE 3+ (NEGATIVE); KETONES URINE NEGATIVE (NEGATIVE); LEUKOCYTE ESTERASE URINE NEGATIVE (NEGATIVE); NITRITE URINE NEGATIVE (NEGATIVE); OCCULT BLOOD URINE NEGATIVE (NEGATIVE); PH URINE 6.0 (4.5-8.0); PROTEIN URINE NEGATIVE (NEGATIVE); SPECIFIC GRAVITY URINE 1.036 (1.005-1.030); UROBILINOGEN URINE 0.2 E.U./dL (0.2-1.0)
[2025-02-21 08:49] LABS: HYALINE CASTS URINE 0-5 /lpf; SQUAMOUS EPITHELIAL CELL URINE RARE /lpf (RARE/1+); WBC URINE 0-2 /hpf (0-2)
[2025-02-21 08:50] LABS: BACTERIA URINE NONE SEEN; RBC URINE NONE SEEN /hpf (0-2)
[2025-02-21] MEDS: SPIRONOLACTONE 25MG TABLET PO SCH (09:00)
[2025-02-21] MEDS: ASPIRIN 81MG TABLET PO SCH (09:08)
[2025-02-21] MEDS: SACUBITRIL/VALSARTAN 24MG/26MG TABLET PO SCH (09:09)
[2025-02-21] MEDS: ENOXAPARIN 40MG/0.4ML SYR SUBCUT SCH (09:10)
[2025-02-21] MEDS: METFORMIN HCL 500MG TABLET PO SCH (09:12)
[2025-02-21] MEDS: HYDROCODONE/ACETAMINOPHEN 5/325MG TABLET PO PRN (09:12)
[2025-02-21] MEDS: AMLODIPINE 5MG TABLET PO SCH (09:22)
[2025-02-21] MEDS: METOPROLOL TARTRATE 50MG TABLET PO SCH (09:22)
[2025-02-21 09:44] LABS: TROPONIN I HIGH SENSITIVITY 1268 ng/L (3.0-53)
[2025-02-21 12:00] VITALS: BP 116/64; PULSE 61; RESP 16; TEMP 36.3; O2SAT 93
[2025-02-21 12:32] LABS: BASOPHILS % 1.2 % (0.0-2.0); EOSINOPHILS % 1.9 % (0.0-5.0); HEMATOCRIT. 26.2 % (42.0-52.0); HEMOGLOBIN. 8.4 g/dL (14.0-18.0); LYMPHOCYTES % 18.4 % (20.0-50.0); MEAN PLATELET VOLUME 7.9 fl (7.4-10.4); MONOCYTES % 6.1 % (2.0-8.0); NEUTROPHILS % 72.4 % (40.0-76.0); PLATELET 227 x1000/uL (130-400); RED BLOOD CELL COUNT 3.02 mill/uL (4.7-6.1); RED CELL DISTRIBUTION WIDTH 14.5 % (11.6-14.6)
[2025-02-21 12:50] LABS: CREATININE 1.0 mg/dL (0.6-1.3); TRIGLYCERIDE 111 mg/dL (0-150); UREA NITROGEN BLOOD 17 mg/dL (9-23)
[2025-02-21 12:51] LABS: LDL CHOLESTEROL 112 mg/dL (5-100)
[2025-02-21 16:00] VITALS: BP 129/57; PULSE 65; RESP 17; TEMP 36.3; O2SAT 98
[2025-02-21] MEDS ORDERED: NITROGLYCERIN 0.4MG TABLET SL SL PRN (16:15)
[2025-02-21] MEDS ORDERED: BLOOD SUGAR DIAGNOSTIC STRIP TEST SCH (17:20)
[2025-02-21 19:22] LABS: VITAMIN B12 SERUM 254 pg/mL (211-911)
[2025-02-21 19:23] LABS: TROPONIN I HIGH SENSITIVITY 1943 ng/L (3.0-53)
[2025-02-21] MEDS: IPRATROPIUM/ALBUTEROL 0.5-3(2.5)MG/3ML NEB HHN PRN (19:46)
[2025-02-21 20:00] VITALS: BP 110/58; PULSE 61; RESP 20; TEMP 36.1; O2SAT 100
[2025-02-21] MEDS: ENOXAPARIN 30MG/0.3ML SYR SUBCUT SCH (20:00)
[2025-02-21] MEDS: ATORVASTATIN CALCIUM 40MG TABLET PO SCH (20:16)
[2025-02-21] MEDS: CARVEDILOL 6.25 MG TABLET PO SCH (20:20)
[2025-02-21] MEDS: ACETAMINOPHEN 325MG TABLET PO PRN (21:07)
[2025-02-21] MEDS: ONDANSETRON HCL 4MG/2ML INJ IV PRN (23:18)
[2025-02-22] VITALS: BP 106/55; PULSE 66; RESP 20; TEMP 36.2; O2SAT 97
[2025-02-22 01:56] LABS: TROPONIN I HIGH SENSITIVITY 1663 ng/L (3.0-53)
[2025-02-22 04:00] VITALS: BP 132/65; PULSE 79; RESP 20; TEMP 36.2; O2SAT 97
[2025-02-22 08:37] LABS: *AMPHETAMINES SCREEN URINE NEGATIVE (NEGATIVE)
[2025-02-22 08:39] LABS: *BARBITURATES SCREEN URINE NEGATIVE (NEGATIVE); *BENZODIAZEPINES SCREEN URINE NEGATIVE (NEGATIVE); *COCAINE SCREEN URINE NEGATIVE (NEGATIVE); CANNABINOID URINE SCREEN PRESUMPTIVE POSITIVE (NEGATIVE); ECSTASY MDMA SCREEN URINE NEGATIVE (NEGATIVE); METHADONE URINE SCREEN NEGATIVE (NEGATIVE); OPIATES URINE SCREEN PRESUMPTIVE POSITIVE (NEGATIVE); PHENCYCLIDINE URINE SCREEN NEGATIVE (NEGATIVE)
[2025-02-22 08:55] VITALS: PULSE 95; RESP 20; O2SAT 98
[2025-02-22] MEDS: PANTOPRAZOLE SODIUM 40 MG/VIAL IV SCH (09:00)
[2025-02-22] MEDS: FUROSEMIDE 40MG TABLET PO SCH (09:00)
[2025-02-22] MEDS: SODIUM CHLORIDE 0.45% 1,000 ML IV SCH (10:20)
[2025-02-22 11:06] LABS: BASOPHILS % 1.9 % (0.0-2.0); EOSINOPHILS % 2.6 % (0.0-5.0); HEMATOCRIT. 31.2 % (42.0-52.0); HEMOGLOBIN. 10.2 g/dL (14.0-18.0); LYMPHOCYTES % 22.0 % (20.0-50.0); MEAN PLATELET VOLUME 7.6 fl (7.4-10.4); MONOCYTES % 8.8 % (2.0-8.0); NEUTROPHILS % 64.7 % (40.0-76.0); PLATELET 264 x1000/uL (130-400); RED BLOOD CELL COUNT 3.64 mill/uL (4.7-6.1); RED CELL DISTRIBUTION WIDTH 14.5 % (11.6-14.6)
[2025-02-22 11:15] LABS: INR 1.0
[2025-02-22 11:19] LABS: CREATININE 1.1 mg/dL (0.6-1.3); UREA NITROGEN BLOOD 17 mg/dL (9-23)
[2025-02-22 11:29] LABS: TROPONIN I HIGH SENSITIVITY 1181 ng/L (3.0-53)
[2025-02-22 12:00] VITALS: BP 134/67; PULSE 82; RESP 20; TEMP 36.4; O2SAT 97
[2025-02-22] MEDS ORDERED: ENOXAPARIN 80MG/0.8ML SYR SUBCUT SCH (12:00)
[2025-02-22] MEDS ORDERED: ASPIRIN/SOD BICARB/CITRIC ACID 324MG TAB EFF ONE (14:01)
[2025-02-22] MEDS ORDERED: IODIXANOL 320MG/ML 100 ML BOTTLE IV ONE ×2 (14:05→15:13)
[2025-02-22] MEDS ORDERED: LIDOCAINE HCL 1% 20ML VIAL ONE (14:05)
[2025-02-22] MEDS ORDERED: HEPARIN 1000 UNITS/ML 10ML ONE (14:05)
[2025-02-22] MEDS ORDERED: FENTANYL CITRATE/PF 50MCG/ML 2ML VIAL ONE (14:32)
[2025-02-22] MEDS ORDERED: MIDAZOLAM HCL 2 MG/2 ML VIAL ONE (14:33)
[2025-02-22] MEDS ORDERED: MORPHINE SULFATE 4 MG/ML INJ (FOR IV/IM USE) IV PRN (15:45)
[2025-02-22] MEDS ORDERED: ATROPINE SULFATE 1MG/10ML SYR IV PRN (15:45)
[2025-02-22] MEDS ORDERED: ACETAMINOPHEN 325MG TABLET PO PRN (15:45)
[2025-02-22] MEDS ORDERED: ONDANSETRON HCL 4MG/2ML INJ IV PRN (15:45)
[2025-02-22] MEDS: SODIUM CHLORIDE 0.45% 1,000 ML IV ONE (15:45)
[2025-02-22] MEDS ORDERED: NALOXONE HCL 0.4MG/ML VIAL IV PRN (16:00)
[2025-02-22 20:00] VITALS: BP 134/68; PULSE 80; RESP 18; TEMP 36.4; O2SAT 99
[2025-02-22] MEDS: ISOSORBIDE MONONITRATE 60MG TABLET SR 24HR PO SCH (20:47)
[2025-02-22 21:57] VITALS: PULSE 84; RESP 20
[2025-02-23] VITALS: BP 101/54; PULSE 81; RESP 18; TEMP 36.3; O2SAT 99
[2025-02-23 04:00] VITALS: BP 126/69; PULSE 87; RESP 20; TEMP 36.5; O2SAT 99
[2025-02-23 08:00] VITALS: BP 161/68; PULSE 69; RESP 18; TEMP 36.4; O2SAT 97
[2025-02-23] MEDS: EMPAGLIFLOZIN 10MG TABLET PO SCH (10:26)
[2025-02-23] MEDS: CLOPIDOGREL 75MG TABLET PO SCH (10:27)
[2025-02-23 12:00] VITALS: BP 122/77; PULSE 83; RESP 18; TEMP 36.3; O2SAT 99
[2025-02-23 13:28] VITALS: BP 122/77; PULSE 83; RESP 18; TEMP 97.4
== END 2025-02-23 12:40 | disposition home or self-care (01) | DRG 190 ==
LOC: ER 21:36 → 6WST 02-21 01:18 → EDBEDREQ 02-21 01:27 → EDBEDREQTM 02-21 01:27 → EDBEDREQDT 02-21 01:27 → ENRESERV 02-21 01:46
PROVIDERS: ADMIT Internal Medicine; ATTEND Internal Medicine
PROC: 4A023N7 Measurement of Cardiac Sampling and Pressure, Left Heart, Percutaneous Approach (ICD-10-PCS; principal; 2025-02-22)
PROC: B2111ZZ Fluoroscopy of Multiple Coronary Arteries using Low Osmolar Contrast (ICD-10-PCS; 2025-02-22)
DX: I21.4 Non-ST elevation (NSTEMI) myocardial infarction (principal); I50.23 Acute on chronic systolic (congestive) heart failure; E11.9 Type 2 diabetes mellitus without complications; I11.0 Hypertensive heart disease with heart failure; I25.5 Ischemic cardiomyopathy; F17.210 Nicotine dependence, cigarettes, uncomplicated; J44.89 Other specified chronic obstructive pulmonary disease; I25.10 Atherosclerotic heart disease of native coronary artery without angina pectoris; E78.5 Hyperlipidemia, unspecified; J43.9 Emphysema, unspecified; Z91.199 Patient's noncompliance with other medical treatment and regimen due to unspecified reason; Z79.02 Long term (current) use of antithrombotics/antiplatelets; Z79.82 Long term (current) use of aspirin; Z95.5 Presence of coronary angioplasty implant and graft; Z79.899 Other long term (current) drug therapy; Z95.810 Presence of automatic (implantable) cardiac defibrillator
CPT/HCPCS: 31720; 36415; 71045; 71275; 80048; 80061; 80076; 80305; 81003; 82607; 82962; 83036; 83540; 83550; 83735; 83880; 84443; 84484; 85025; 85044; 93005; 93306; 93458; 94070; 94640; 94760; 96374; 96375; 99291; A4606; C1769; C1887; C1893; J1644; J1650; J2003; J2250; J2270; J2405; J2470; J3010; Q9967

== ENCOUNTER 2025-03-20 02:07 | Inpatient (IN) | payer MEDICAID ==
[~2025-03-20] VITALS: Ht 167.6 cm; Wt 66.2 kg
[2025-03-20] VITALS (8 sets, daily range): BP systolic 109–155; BP diastolic 65–80; PULSE 77–87; RESP 18–21; TEMP 35.9–36.7; O2SAT 97–99
[~2025-03-20 02:07] MED LIST changes: -SACU1TAB PO
[2025-03-20] MEDS: ASPIRIN 325MG EC TABLET PO ONE (02:57)
[2025-03-20] MEDS: NITROGLYCERIN 0.4MG TABLET SL SL ONE (02:58)
[2025-03-20 03:06] LABS: BASOPHILS % 0.9 % (0.0-2.0); EOSINOPHILS % 3.0 % (0.0-5.0); HEMATOCRIT. 25.1 % (42.0-52.0); HEMOGLOBIN. 7.8 g/dL (14.0-18.0); LYMPHOCYTES % 23.6 % (20.0-50.0); MEAN PLATELET VOLUME 7.4 fl (7.4-10.4); MONOCYTES % 9.0 % (2.0-8.0); NEUTROPHILS % 63.5 % (40.0-76.0); PLATELET 188 x1000/uL (130-400); RED BLOOD CELL COUNT 2.79 mill/uL (4.7-6.1); RED CELL DISTRIBUTION WIDTH 16.8 % (11.6-14.6)
[2025-03-20 03:16] LABS: INR 1.0
[2025-03-20 03:30] LABS: CREATININE 1.2 mg/dL (0.6-1.3); UREA NITROGEN BLOOD 15 mg/dL (9-23)
[2025-03-20 03:31] LABS: TROPONIN I HIGH SENSITIVITY 22 ng/L (3.0-53)
[2025-03-20 03:32] LABS: ASPARTATE AMINOTRANSFERASE 42 IU/L (<34); BILIRUBIN DIRECT < 0.1 mg/dL (<=3.0); BILIRUBIN TOTAL 0.2 mg/dL (0.1-1.0); PROTEIN TOTAL 5.7 g/dL (6.0-8.3)
[2025-03-20] MEDS: MORPHINE SULFATE 4 MG/ML INJ (FOR IV/IM USE) IV NR (05:13)
[2025-03-20] MEDS: NITROGLYCERIN OINT 1GM/INCH UDPKT TD ONE (05:28)
[2025-03-20] MEDS: ALBUTEROL (0.5%) 2.5MG/0.5ML NEB HHN ONE (05:45)
[2025-03-20] MEDS: FUROSEMIDE 40MG/4ML VIAL IVP ONE (06:20)
[2025-03-20 07:13] LABS: BG BASE EXCESS -3.9 mmol/L (-2.0-3.0); BG CARBOXYHEMOGLOBIN 1.3 % (0.5-1.5); BG DEOXYHEMOGLOBIN 11.7 % (0.0-5.0); BG FRACTION INSPIRED OXYGEN 21; BG HCO3 ACT 21.8 mmol/L (21.0-28.0); BG METHEMOGLOBIN 0.2 % (0.5-1.5); BG OXYGEN SATURATION 88.1 % (94.0-98.0); BG OXYHEMOGLOBIN 86.8 % (94.0-98.0); BG PCO2 42.4 mmHg (35.0-48.0); BG PH 7.329 (7.350-7.450); BG PO2 59.4 mmHg (83.0-108.0); BG SAMPLE SITE LEFT BRACHIAL; BG TOTAL HEMOGLOBIN 10.3 g/dL (13.5-17.5); BG VENT MODE ROOM AIR
[2025-03-20 08:10] LABS: CLARITY URINE CLEAR (CLEAR); COLOR URINE YELLOW (YELLOW); GLUCOSE URINE 1+ (NEGATIVE); KETONES URINE NEGATIVE (NEGATIVE); LEUKOCYTE ESTERASE URINE NEGATIVE (NEGATIVE); NITRITE URINE NEGATIVE (NEGATIVE); OCCULT BLOOD URINE NEGATIVE (NEGATIVE); PH URINE 6.0 (4.5-8.0); PROTEIN URINE NEGATIVE (NEGATIVE); SPECIFIC GRAVITY URINE 1.006 (1.005-1.030); UROBILINOGEN URINE 0.2 E.U./dL (0.2-1.0)
[2025-03-20 08:37] LABS: *AMPHETAMINES SCREEN URINE NEGATIVE (NEGATIVE); *BARBITURATES SCREEN URINE NEGATIVE (NEGATIVE); *BENZODIAZEPINES SCREEN URINE NEGATIVE (NEGATIVE); *COCAINE SCREEN URINE NEGATIVE (NEGATIVE); CANNABINOID URINE SCREEN PRESUMPTIVE POSITIVE (NEGATIVE); ECSTASY MDMA SCREEN URINE NEGATIVE (NEGATIVE); METHADONE URINE SCREEN NEGATIVE (NEGATIVE); OPIATES URINE SCREEN NEGATIVE (NEGATIVE); PHENCYCLIDINE URINE SCREEN NEGATIVE (NEGATIVE)
[2025-03-20 08:43] LABS: BACTERIA URINE NONE SEEN; RBC URINE NONE SEEN /hpf (0-2); SQUAMOUS EPITHELIAL CELL URINE NONE SEEN /lpf (RARE/1+); WBC URINE 0-2 /hpf (0-2)
[2025-03-20] MEDS ORDERED: ONDANSETRON HCL 4MG/2ML INJ IV PRN (11:45)
[2025-03-20] MEDS ORDERED: ACETAMINOPHEN 325MG TABLET PO PRN ×2 (11:45)
[2025-03-20] MEDS: FUROSEMIDE 40MG/4ML VIAL IVP SCH (12:00)
[2025-03-20] MEDS: AMLODIPINE 10MG TABLET PO SCH (13:50)
[2025-03-20] MEDS ORDERED: FERROUS SULFATE 325MG TABLET PO SCH (14:15)
[2025-03-20] MEDS ORDERED: EMPAGLIFLOZIN 10MG TABLET PO SCH (14:15)
[2025-03-20] MEDS ORDERED: CLOPIDOGREL 75MG TABLET PO SCH (14:15)
[2025-03-20] MEDS ORDERED: SPIRONOLACTONE 25MG TABLET PO SCH (14:15)
[2025-03-20] MEDS ORDERED: ACETAMINOPHEN 325MG TABLET PO SCH (14:15)
[2025-03-20] MEDS ORDERED: CARV6.2548 PO (14:45)
[2025-03-20] MEDS: CALCIUM 1250MG TABLET (500MG ELEMENTAL CALCIUM) PO SCH (15:23)
[2025-03-20] MEDS: ISOSORBIDE MONONITRATE 30MG TABLET SR 24HR PO SCH (15:23)
[2025-03-20] MEDS: SPIRONOLACTONE 25MG TABLET PO SCH (15:24)
[2025-03-20] MEDS: CLOPIDOGREL 75MG TABLET PO SCH (15:24)
[2025-03-20] MEDS: EMPAGLIFLOZIN 10MG TABLET PO SCH (15:24)
[2025-03-20] MEDS: CARVEDILOL 3.125 MG TABLET PO NR (15:25)
[2025-03-20] MEDS: ASPIRIN 81MG TABLET PO SCH (15:25)
[2025-03-20] MEDS ORDERED: FUROSEMIDE 40MG TABLET PO SCH (17:15)
[2025-03-20] MEDS: FERROUS SULFATE 325MG TABLET PO SCH (17:22)
[2025-03-20] MEDS: METFORMIN HCL 500MG TABLET PO SCH (17:22)
[2025-03-20] MEDS ORDERED: NALOXONE HCL 0.4MG/ML VIAL IV PRN (20:45)
[2025-03-20] MEDS: SACUBITRIL/VALSARTAN 24MG/26MG TABLET PO SCH (20:52)
[2025-03-20] MEDS: AMLODIPINE 5MG TABLET PO SCH (20:52)
[2025-03-20] MEDS: ATORVASTATIN CALCIUM 40MG TABLET PO SCH (20:52)
[2025-03-20] MEDS: CARVEDILOL 6.25 MG TABLET PO SCH (20:53)
[2025-03-20] MEDS: HYDROCODONE/ACETAMINOPHEN 5/325MG TABLET PO PRN (20:53)
[2025-03-20] MEDS ORDERED: ATORVASTATIN CALCIUM 40MG TABLET PO SCH (21:00)
[2025-03-20] MEDS ORDERED: CARVEDILOL 3.125 MG TABLET PO SCH (21:00)
[2025-03-20] MEDS ORDERED: CARVEDILOL 12.5MG TABLET PO SCH (21:00)
[2025-03-21] VITALS: BP 107/69; PULSE 72; RESP 17; TEMP 36.5; O2SAT 95
[2025-03-21 04:00] VITALS: BP 107/69; PULSE 91; RESP 18; TEMP 36.7; O2SAT 98
[2025-03-21 08:00] VITALS: BP 110/70; PULSE 90; RESP 18; TEMP 36.5; O2SAT 97
[2025-03-21 08:41] LABS: CREATININE 1.1 mg/dL (0.6-1.3); UREA NITROGEN BLOOD 12 mg/dL (9-23)
[2025-03-21] MEDS ORDERED: CALCIUM 1250MG TABLET (500MG ELEMENTAL CALCIUM) PO SCH (09:00)
[2025-03-21] MEDS ORDERED: EMPAGLIFLOZIN 10MG TABLET PO SCH (09:00)
[2025-03-21] MEDS ORDERED: ASPIRIN 81MG EC TABLET PO SCH (09:00)
[2025-03-21] MEDS ORDERED: CLOPIDOGREL 75MG TABLET PO SCH (09:00)
[2025-03-21] MEDS ORDERED: SPIRONOLACTONE 25MG TABLET PO SCH (09:00)
[2025-03-21] MEDS ORDERED: ASPIRIN 81MG TABLET PO SCH (09:00)
[2025-03-21 09:08] LABS: TROPONIN I HIGH SENSITIVITY 317 ng/L (3.0-53)
[2025-03-21 12:00] VITALS: BP 99/57; PULSE 86; RESP 18; TEMP 36.7; O2SAT 98
[2025-03-21 16:00] VITALS: BP 107/70; PULSE 84; RESP 20; TEMP 36.7; O2SAT 98
[2025-03-21 20:00] VITALS: BP 114/69; PULSE 76; RESP 20; TEMP 36.4; O2SAT 98
[2025-03-21] MEDS: GUAIFENESIN-DM 200MG-20MG/10ML UDC PO PRN (20:39)
[2025-03-22 08:00] VITALS: BP 141/77; PULSE 81; RESP 18; TEMP 36.7
[2025-03-22 12:00] VITALS: BP 100/62; PULSE 85; RESP 20; TEMP 37; O2SAT 95
[2025-03-22 13:13] LABS: BASOPHILS % 2.1 % (0.0-2.0); EOSINOPHILS % 2.2 % (0.0-5.0); HEMATOCRIT. 37.2 % (42.0-52.0); HEMOGLOBIN. 11.7 g/dL (14.0-18.0); LYMPHOCYTES % 37.8 % (20.0-50.0); MEAN PLATELET VOLUME 7.8 fl (7.4-10.4); MONOCYTES % 9.9 % (2.0-8.0); NEUTROPHILS % 48.0 % (40.0-76.0); PLATELET 271 x1000/uL (130-400); RED BLOOD CELL COUNT 4.26 mill/uL (4.7-6.1); RED CELL DISTRIBUTION WIDTH 15.7 % (11.6-14.6)
[2025-03-22 13:30] LABS: CREATININE 1.2 mg/dL (0.6-1.3); UREA NITROGEN BLOOD 16 mg/dL (9-23)
[2025-03-22 13:41] LABS: TROPONIN I HIGH SENSITIVITY 118 ng/L (3.0-53)
[2025-03-22 16:00] VITALS: BP 116/91; PULSE 92; RESP 20; TEMP 36.2; O2SAT 95
[2025-03-22 16:41] VITALS: BP 116/91; PULSE 92; RESP 18; TEMP 98
== END 2025-03-22 18:15 | disposition home or self-care (01) | DRG 194 ==
LOC: ER 02:07 → EDBEDREQ 04:07 → EDBEDREQTM 04:07 → ENRESERV 04:36 → CANRESERV 04:36 → 7WST 05:39 → EDBEDREQTM 06:00 → EDBEDREQSVC 06:00 → ENRESERV 07:24 → CANRESERV 07:24 → EDBEDREQSVC 08:40 → ENRESERV 09:05 → CANRESERV 09:05 → ENRESERV 09:11
PROVIDERS: ADMIT Internal Medicine; ATTEND Internal Medicine
PROC: 5A09357 Assistance with Respiratory Ventilation, Less than 24 Consecutive Hours, Continuous Positive Airway Pressure (ICD-10-PCS; principal; 2025-03-20)
DX: I11.0 Hypertensive heart disease with heart failure (principal); I95.9 Hypotension, unspecified; D64.9 Anemia, unspecified; D72.819 Decreased white blood cell count, unspecified; E78.5 Hyperlipidemia, unspecified; E11.9 Type 2 diabetes mellitus without complications; I50.33 Acute on chronic diastolic (congestive) heart failure; F17.210 Nicotine dependence, cigarettes, uncomplicated; R09.02 Hypoxemia; I25.10 Atherosclerotic heart disease of native coronary artery without angina pectoris; I25.5 Ischemic cardiomyopathy; F12.90 Cannabis use, unspecified, uncomplicated; J43.9 Emphysema, unspecified; Z79.899 Other long term (current) drug therapy; I25.2 Old myocardial infarction; Z95.5 Presence of coronary angioplasty implant and graft; Z79.02 Long term (current) use of antithrombotics/antiplatelets; Z79.82 Long term (current) use of aspirin; Z95.810 Presence of automatic (implantable) cardiac defibrillator
CPT/HCPCS: 36415; 36600; 71045; 80048; 80076; 80305; 80320; 81003; 82375; 82805; 83735; 83880; 84484; 85025; 93005; 94070; 94640; 94660; 94664; 96374; 98960; 99285; A4606; J1938; J2270; G0480

== ENCOUNTER 2025-04-20 02:54 | Inpatient (IN) | payer MEDICAID ==
[2025-04-20] VITALS (11 sets, daily range): BP systolic 112–144; BP diastolic 54–72; PULSE 73–83; RESP 18–19; TEMP 36.3–36.78072; O2SAT 99–100
[~2025-04-20] VITALS: Ht 175.3 cm; Wt 60.8 kg
[~2025-04-20 02:54] MED LIST changes: -CALC-26 PO; +CARV6.2548 PO; -COR12 MT; -COR3 PO
[2025-04-20 05:16] LABS: BASOPHILS % 1.5 % (0.0-2.0); EOSINOPHILS % 2.2 % (0.0-5.0); HEMATOCRIT. 22.1 % (42.0-52.0); LYMPHOCYTES % 23.1 % (20.0-50.0); MEAN PLATELET VOLUME 7.2 fl (7.4-10.4); MONOCYTES % 6.7 % (2.0-8.0); NEUTROPHILS % 66.5 % (40.0-76.0); PLATELET 247 x1000/uL (130-400); RED BLOOD CELL COUNT 2.67 mill/uL (4.7-6.1); RED CELL DISTRIBUTION WIDTH 13.6 % (11.6-14.6)
[2025-04-20 05:20] LABS: HEMOGLOBIN. 6.8 g/dL (14.0-18.0)
[2025-04-20 05:24] LABS: INR 1.0
[2025-04-20 05:29] LABS: UREA NITROGEN BLOOD 36 mg/dL (9-23)
[2025-04-20 05:30] LABS: CREATININE 1.9 mg/dL (0.6-1.3); TROPONIN I HIGH SENSITIVITY 29 ng/L (3.0-53)
[2025-04-20 05:31] LABS: ASPARTATE AMINOTRANSFERASE 18 IU/L (<34); BILIRUBIN DIRECT < 0.1 mg/dL (<=3.0)
[2025-04-20 05:32] LABS: BILIRUBIN TOTAL 0.2 mg/dL (0.1-1.0); PROTEIN TOTAL 6.3 g/dL (6.0-8.3)
[2025-04-20] MEDS ORDERED: MAGNESIUM/ALUMINUM HYDROXIDE/SIMETHICONE 30ML UDC PO PRN (07:45)
[2025-04-20] MEDS ORDERED: DOCUSATE SODIUM 100MG CAPSULE PO PRN (07:45)
[2025-04-20] MEDS ORDERED: ACETAMINOPHEN 325MG TABLET PO PRN ×2 (07:45)
[2025-04-20] MEDS ORDERED: CLONIDINE 0.1MG TABLET PO PRN (07:45)
[2025-04-20] MEDS ORDERED: IPRATROPIUM/ALBUTEROL 0.5-3(2.5)MG/3ML NEB HHN PRN (07:45)
[2025-04-20] MEDS ORDERED: ONDANSETRON HCL 4MG/2ML INJ IV PRN (07:45)
[2025-04-20 07:51] LABS: *AMPHETAMINES SCREEN URINE NEGATIVE (NEGATIVE); *BARBITURATES SCREEN URINE NEGATIVE (NEGATIVE); *BENZODIAZEPINES SCREEN URINE NEGATIVE (NEGATIVE); *COCAINE SCREEN URINE NEGATIVE (NEGATIVE); CANNABINOID URINE SCREEN PRESUMPTIVE POSITIVE (NEGATIVE); ECSTASY MDMA SCREEN URINE NEGATIVE (NEGATIVE); METHADONE URINE SCREEN NEGATIVE (NEGATIVE); OPIATES URINE SCREEN NEGATIVE (NEGATIVE); PHENCYCLIDINE URINE SCREEN NEGATIVE (NEGATIVE)
[2025-04-20 08:14] LABS: CLARITY URINE CLEAR (CLEAR); COLOR URINE YELLOW (YELLOW); GLUCOSE URINE 3+ (NEGATIVE); PH URINE 5.5 (4.5-8.0); PROTEIN URINE NEGATIVE (NEGATIVE)
[2025-04-20 08:16] LABS: KETONES URINE NEGATIVE (NEGATIVE); LEUKOCYTE ESTERASE URINE NEGATIVE (NEGATIVE); NITRITE URINE NEGATIVE (NEGATIVE); OCCULT BLOOD URINE NEGATIVE (NEGATIVE); SPECIFIC GRAVITY URINE 1.018 (1.005-1.030); UROBILINOGEN URINE 0.2 E.U./dL (0.2-1.0)
[2025-04-20 09:11] LABS: BACTERIA URINE NONE SEEN; RBC URINE 0-2 /hpf (0-2); SQUAMOUS EPITHELIAL CELL URINE NONE SEEN /lpf (RARE/1+); WBC URINE 0-2 /hpf (0-2)
[2025-04-20] MEDS: ASPIRIN 81MG EC TABLET PO SCH (09:43)
[2025-04-20] MEDS: CLOPIDOGREL 75MG TABLET PO SCH (09:43)
[2025-04-20] MEDS: AMLODIPINE 5MG TABLET PO SCH (09:44)
[2025-04-20] MEDS: ENOXAPARIN 40MG/0.4ML SYR SUBCUT SCH (09:45)
[2025-04-20 11:58] LABS: CREATININE 1.6 mg/dL (0.6-1.3); UREA NITROGEN BLOOD 27.0 mg/dL (9-23)
[2025-04-20] MEDS ORDERED: DEXTROSE 50% WATER 50ML SYRINGE IV PRN (13:30)
[2025-04-20] MEDS: MAGNESIUM 2 G PREMIX 50 ML IV SCH (15:11)
[2025-04-20] MEDS: SODIUM CHLORIDE 0.9% 500 ML IV ONE (15:17)
[2025-04-20] MEDS: NITROGLYCERIN 0.4MG TABLET SL SL ONE (15:27)
[2025-04-20] MEDS: BLOOD SUGAR DIAGNOSTIC STRIP TEST SCH (18:01)
[2025-04-20] MEDS: INSULIN LISPRO 100 UNITS/ML SUBCUT SCH (18:02)
[2025-04-20] MEDS: GUAIFENESIN 200MG/10ML SUGAR FREE UDC PO PRN (20:20)
[2025-04-20] MEDS: ATORVASTATIN CALCIUM 40MG TABLET PO SCH (20:21)
[2025-04-20] MEDS: CARVEDILOL 3.125 MG TABLET PO SCH (20:21)
[2025-04-20 22:38] LABS: SODIUM URINE RANDOM 52.0 mEq/L
[2025-04-20 22:42] LABS: PROTEIN URINE RANDOM 23.0 mg/dL
[2025-04-20 22:45] LABS: CREATININE URINE RANDOM 74.6 mg/dL; UREA NITROGEN URINE RANDOM 736.0 mg/dL
[2025-04-21] VITALS: BP 128/64; PULSE 81; RESP 19; TEMP 36.6; O2SAT 100
[2025-04-21 04:00] VITALS: BP 123/68; PULSE 79; RESP 18; TEMP 36.4; O2SAT 99
[2025-04-21 08:00] VITALS: BP 154/73; PULSE 87; RESP 19; TEMP 36.8; O2SAT 99
[2025-04-21] MEDS: PANTOPRAZOLE SODIUM 40 MG/VIAL IV SCH (09:30)
[2025-04-21] MEDS: CLONIDINE 0.1MG TABLET PO SCH (10:00)
[2025-04-21 12:00] VITALS: BP 133/70; PULSE 88; RESP 20; TEMP 36.6; O2SAT 100
[2025-04-21 12:13] LABS: BASOPHILS % 0.8 % (0.0-2.0); EOSINOPHILS % 1.4 % (0.0-5.0); HEMATOCRIT. 29.6 % (42.0-52.0); LYMPHOCYTES % 10.2 % (20.0-50.0); MEAN PLATELET VOLUME 7.3 fl (7.4-10.4); MONOCYTES % 5.2 % (2.0-8.0); NEUTROPHILS % 82.4 % (40.0-76.0); PLATELET 246 x1000/uL (130-400); RED BLOOD CELL COUNT 3.66 mill/uL (4.7-6.1); RED CELL DISTRIBUTION WIDTH 14.5 % (11.6-14.6)
[2025-04-21 12:25] LABS: TROPONIN I HIGH SENSITIVITY 18 ng/L (3.0-53)
[2025-04-21 12:27] LABS: CREATININE 1.2 mg/dL (0.6-1.3)
[2025-04-21 12:28] LABS: LDL CHOLESTEROL 64 mg/dL (5-100); TRIGLYCERIDE 106 mg/dL (0-150); UREA NITROGEN BLOOD 15 mg/dL (9-23)
[2025-04-21 12:29] LABS: ASPARTATE AMINOTRANSFERASE 15 IU/L (<34); T4 FREE 1.23 ng/dL (0.89-1.76)
[2025-04-21 12:30] LABS: BILIRUBIN TOTAL 0.6 mg/dL (0.1-1.0); PROTEIN TOTAL 6.0 g/dL (6.0-8.3)
[2025-04-21 12:41] LABS: HEMOGLOBIN. 9.5 g/dL (14.0-18.0)
[2025-04-21 16:00] VITALS: BP 128/74; PULSE 89; RESP 21; TEMP 36.7; O2SAT 100
[2025-04-21] MEDS: FERROUS SULFATE 325MG TABLET PO SCH (19:10)
[2025-04-21 20:00] VITALS: BP 139/63; PULSE 75; RESP 18; TEMP 36.5; O2SAT 100
[2025-04-21] MEDS ORDERED: ATORVASTATIN CALCIUM 40MG TABLET PO SCH (21:00)
[2025-04-22] VITALS: BP 111/69; PULSE 79; RESP 18; TEMP 36.2; O2SAT 98
[2025-04-22] MEDS: NITROGLYCERIN 0.4MG TABLET SL SL PRN (01:52)
[2025-04-22 04:00] VITALS: BP 136/68; PULSE 74; RESP 17; TEMP 36.4; O2SAT 99
[2025-04-22 06:08] LABS: CREATININE 1.2 mg/dL (0.6-1.3); TROPONIN I HIGH SENSITIVITY 16 ng/L (3.0-53)
[2025-04-22 06:09] LABS: UREA NITROGEN BLOOD 14 mg/dL (9-23)
[2025-04-22 06:18] LABS: PLATELET 249 x1000/uL (130-400); RED BLOOD CELL COUNT 3.57 mill/uL (4.7-6.1); RED CELL DISTRIBUTION WIDTH 14.4 % (11.6-14.6)
[2025-04-22 07:27] LABS: INFLUENZA TYPE A Presumptive Negative (Pres. Neg.); INFLUENZA TYPE B Presumptive Negative (Pres. Neg.); RESPIRATORY SYNCYTIAL VIRUS Not Detected (Not Detectd)
[2025-04-22 08:13] VITALS: BP 125/54; PULSE 74; RESP 17; TEMP 36.4; O2SAT 98
[2025-04-22] MEDS: EMPAGLIFLOZIN 10MG TABLET PO SCH (08:54)
[2025-04-22] MEDS: ASPIRIN 81MG EC TABLET PO SCH (08:54)
[2025-04-22 11:50] VITALS: BP 135/81; PULSE 70; RESP 16; TEMP 36.3; O2SAT 100
[2025-04-22 16:45] VITALS: BP 134/54; PULSE 74; RESP 18; TEMP 36.1; O2SAT 98
[2025-04-22 20:00] VITALS: BP 128/53; PULSE 70; RESP 18; TEMP 36.4; O2SAT 100
[2025-04-22] MEDS: SACUBITRIL/VALSARTAN 24MG/26MG TABLET PO SCH (21:20)
[2025-04-23] VITALS (7 sets, daily range): BP systolic 100–137; BP diastolic 41–61; PULSE 73–97; RESP 18–20; TEMP 36.4–36.9; O2SAT 98–100
[2025-04-23 08:54] LABS: PLATELET 216 x1000/uL (130-400); RED BLOOD CELL COUNT 3.56 mill/uL (4.7-6.1); RED CELL DISTRIBUTION WIDTH 14.4 % (11.6-14.6)
[2025-04-23] MEDS: SPIRONOLACTONE 25MG TABLET PO SCH (09:00)
[2025-04-23] MEDS: ISOSORBIDE MONONITRATE 30MG TABLET SR 24HR PO SCH (09:00)
[2025-04-23 09:16] LABS: CREATININE 1.3 mg/dL (0.6-1.3)
[2025-04-23 09:18] LABS: UREA NITROGEN BLOOD 18 mg/dL (9-23)
[2025-04-23] MEDS: FUROSEMIDE 40MG TABLET PO SCH (09:27)
[2025-04-24 08:00] VITALS: BP 113/60; PULSE 80; RESP 18; TEMP 36.5; O2SAT 98
[2025-04-24] MEDS: ASPIRIN 81MG EC TABLET PO NR (15:45)
[2025-04-24 16:42] VITALS: BP 121/62; PULSE 83; RESP 18; TEMP 36.4; O2SAT 98
[2025-04-24 20:00] VITALS: BP 118/60; PULSE 81; RESP 18; TEMP 36.6; O2SAT 99
[2025-04-24 21:59] LABS: PLATELET 233 x1000/uL (130-400); RED BLOOD CELL COUNT 3.81 mill/uL (4.7-6.1); RED CELL DISTRIBUTION WIDTH 14.3 % (11.6-14.6)
[2025-04-24 22:08] LABS: INR 1.0
[2025-04-24 22:14] LABS: CREATININE 1.4 mg/dL (0.6-1.3); UREA NITROGEN BLOOD 25 mg/dL (9-23)
[2025-04-25] VITALS: BP 111/56; PULSE 80; RESP 20; TEMP 36.4; O2SAT 98
[2025-04-25 04:00] VITALS: BP 116/60; PULSE 78; RESP 20; TEMP 36.6; O2SAT 100
[2025-04-25 08:28] LABS: BASOPHILS % 2.1 % (0.0-2.0); EOSINOPHILS % 3.4 % (0.0-5.0); HEMATOCRIT. 33.1 % (42.0-52.0); HEMOGLOBIN. 9.8 g/dL (14.0-18.0); LYMPHOCYTES % 21.0 % (20.0-50.0); MEAN PLATELET VOLUME 7.9 fl (7.4-10.4); MONOCYTES % 7.6 % (2.0-8.0); NEUTROPHILS % 65.9 % (40.0-76.0); PLATELET 206 x1000/uL (130-400); RED BLOOD CELL COUNT 3.94 mill/uL (4.7-6.1); RED CELL DISTRIBUTION WIDTH 14.5 % (11.6-14.6)
[2025-04-25 08:34] LABS: CREATININE 0.7 mg/dL (0.6-1.3); UREA NITROGEN BLOOD 19 mg/dL (9-23)
[2025-04-25 12:00] VITALS: BP 115/66; PULSE 73; RESP 18; TEMP 36.2; O2SAT 99
[2025-04-25] MEDS ORDERED: PROPOFOL 200MG/20ML VIAL IV ONE (12:23)
[2025-04-25] MEDS ORDERED: LABETALOL 5MG/ML 4ML INJ IV PRN (13:00)
[2025-04-25] MEDS ORDERED: FAMOTIDINE 20MG/2ML VIAL IV PRN (13:00)
[2025-04-25] MEDS ORDERED: ACETAMINOPHEN 1,000MG/100ML PREMIX IV PRN (13:00)
[2025-04-25] MEDS ORDERED: HYDRALAZINE 20MG/ML VIAL IV PRN ×2 (13:00)
[2025-04-25] MEDS ORDERED: MEPERIDINE HCL/PF 25MG/ML CPJ IV PRN (13:00)
[2025-04-25] MEDS ORDERED: HYDROMORPHONE HCL/PF 1MG/ML INJ IV PRN (13:00)
[2025-04-25] MEDS ORDERED: ONDANSETRON HCL 4MG/2ML INJ IV PRN (13:00)
[2025-04-25 16:00] VITALS: BP 107/60; PULSE 83; RESP 20; TEMP 36.1; O2SAT 100
[2025-04-25] MEDS ORDERED: CARV3.1242 MT ×2 (19:20→19:42)
[2025-04-25] MEDS ORDERED: SACU1TAB PO ×2 (19:20→19:43)
[2025-04-25] MEDS ORDERED: ISOS30TA91 PO ×2 (19:20→19:43)
[2025-04-25] MEDS ORDERED: FURO-151 MT ×2 (19:20→19:42)
[2025-04-25] MEDS ORDERED: NITR0.4T49 SL ×2 (19:20→19:43)
[2025-04-25] MEDS ORDERED: METF-416 PO (19:42)
[2025-04-25] MEDS ORDERED: LIP40 PO (19:42)
[2025-04-25] MEDS ORDERED: CLOP-31 PO (19:42)
[2025-04-25] MEDS ORDERED: FERR-63 PO (19:42)
[2025-04-25] MEDS ORDERED: ASPI-1406 PO (19:42)
[2025-04-25] MEDS ORDERED: EMPA10TA PO (19:42)
[2025-04-25] MEDS ORDERED: SPIR25TA PO (19:42)
[2025-04-25 20:10] VITALS: BP 137/57; PULSE 84; RESP 20; TEMP 36.4; O2SAT 95
[2025-04-25] MEDS: FAMOTIDINE 20MG TABLET PO SCH (21:20)
[2025-04-26 00:22] VITALS: BP 106/52; PULSE 76; RESP 18; TEMP 36.3; O2SAT 100
[2025-04-26 04:00] VITALS: BP 115/61; PULSE 77; RESP 18; TEMP 36.4; O2SAT 98
[2025-04-26 08:00] VITALS: BP 139/61; PULSE 71; RESP 16; TEMP 36.4; O2SAT 100
[2025-04-26] MEDS: ASPIRIN 81MG EC TABLET PO SCH (08:22)
[2025-04-26] MEDS: CLOPIDOGREL 75MG TABLET PO SCH (08:22)
[2025-04-26 08:46] LABS: CREATININE 1.2 mg/dL (0.6-1.3); UREA NITROGEN BLOOD 14 mg/dL (9-23)
[2025-04-26] MEDS: SODIUM ZIRCONIUM CYCLOSILICATE 10GM/PACKET PO NR (10:08)
[2025-04-26 12:00] VITALS: BP 106/58; PULSE 82; RESP 18; TEMP 35.9; O2SAT 99
[2025-04-26 13:24] VITALS: BP 106/58; PULSE 82; TEMP 96.9
[2025-04-26 14:21] LABS: BASOPHILS % 2.2 % (0.0-2.0); EOSINOPHILS % 2.9 % (0.0-5.0); HEMATOCRIT. 30.8 % (42.0-52.0); HEMOGLOBIN. 9.6 g/dL (14.0-18.0); LYMPHOCYTES % 21.1 % (20.0-50.0); MEAN PLATELET VOLUME 8.2 fl (7.4-10.4); MONOCYTES % 7.2 % (2.0-8.0); NEUTROPHILS % 66.6 % (40.0-76.0); PLATELET 237 x1000/uL (130-400); RED BLOOD CELL COUNT 3.77 mill/uL (4.7-6.1); RED CELL DISTRIBUTION WIDTH 14.8 % (11.6-14.6)
== END 2025-04-26 03:45 | disposition home or self-care (01) | DRG 663 ==
LOC: ER 02:54 → 7WST 05:35 → EDBEDREQ 06:09 → EDBEDREQTM 06:09 → ENRESERV 06:56
PROVIDERS: ADMIT Internal Medicine; ATTEND Internal Medicine
PROC: 30233N1 Transfusion of Nonautologous Red Blood Cells into Peripheral Vein, Percutaneous Approach (ICD-10-PCS; principal; 2025-04-20)
PROC: 0DB68ZX Excision of Stomach, Via Natural or Artificial Opening Endoscopic, Diagnostic (ICD-10-PCS; 2025-04-25)
PROC: 0DB78ZX Excision of Stomach, Pylorus, Via Natural or Artificial Opening Endoscopic, Diagnostic (ICD-10-PCS; 2025-04-25)
DX: D64.89 Other specified anemias (principal); I11.0 Hypertensive heart disease with heart failure; N17.9 Acute kidney failure, unspecified; I13.0 Hypertensive heart and chronic kidney disease with heart failure and stage 1 through stage 4 chronic kidney disease, or unspecified chronic kidney disease; Z79.01 Long term (current) use of anticoagulants; E11.65 Type 2 diabetes mellitus with hyperglycemia; N18.9 Chronic kidney disease, unspecified; J44.89 Other specified chronic obstructive pulmonary disease; K25.9 Gastric ulcer, unspecified as acute or chronic, without hemorrhage or perforation; M94.0 Chondrocostal junction syndrome [Tietze]; E11.22 Type 2 diabetes mellitus with diabetic chronic kidney disease; E78.00 Pure hypercholesterolemia, unspecified; E83.42 Hypomagnesemia; I25.5 Ischemic cardiomyopathy; K29.70 Gastritis, unspecified, without bleeding; K44.9 Diaphragmatic hernia without obstruction or gangrene; I25.10 Atherosclerotic heart disease of native coronary artery without angina pectoris; J43.9 Emphysema, unspecified; F17.210 Nicotine dependence, cigarettes, uncomplicated; E87.5 Hyperkalemia; Z79.899 Other long term (current) drug therapy; Z79.82 Long term (current) use of aspirin; Z95.810 Presence of automatic (implantable) cardiac defibrillator; Z79.84 Long term (current) use of oral hypoglycemic drugs; I25.2 Old myocardial infarction; Z95.5 Presence of coronary angioplasty implant and graft
CPT/HCPCS: 36415; 71045; 80048; 80053; 80061; 80076; 80305; 80320; 81003; 82270; 82570; 82962; 83036; 83735; 83880; 84132; 84156; 84300; 84439; 84443; 84484; 84540; 85025; 85027; 86850; 86900; 86920; 87420; 87804; 88305; 88312; 88313; 93005; 93971; 97161; 97166; 99285; A4606; A4615; J1650; J2470; J2704; J3475; P9016; G0480